=== PATIENT | female | born 1985 | race Caucasian/White ===

== ENCOUNTER 2018-04-29 15:57 | Emergency (ER) | payer MEDICAID, SELFPAY ==
[2018-04-29 15:58] VITALS: BP 122/74; PULSE 86; RESP 16; TEMP 36.8; O2SAT 100; BMI 19.5
[2018-04-29] MEDS: 0.9% Normal Saline 1,000 ML 1000 ML IV (16:41)
[2018-04-29] MEDS: Ondansetron 4 MG/2 ML Vial IV (16:41)
[2018-04-29] MEDS: Ketorolac 30 MG/ML Syringe IV (16:41)
[2018-04-29 16:57] LABS: Bacteria 0 SEEN /hpf (None Seen); Mucous, Urine 0 SEEN /hpf (<or=2+)
[2018-04-29 17:00] LABS: Absolute Lymphocyte Count 1.79 X10^3/ul (0.83-4.51); Absolute Neutrophil Count 7.8 X10^3/uL (2.0-7.7); Basophil# 0.02 X10^3/uL; Basophil% 0.2 % (0-1); Eosinophil# 0.12 X10^3/uL; Eosinophils% 1.2 % (0-5); Hematocrit 41.2 % (37-47); Hemoglobin 13.8 g/dl (12.0-15.0); Lymphocyte # 1.79 X10^3/ul (4.0); Lymphocyte % 17.5 % (19-41); Mean Corp Hgb Conc 33.5 g/gl (32-36); Mean Corpuscular Hgb 32.6 pg (27.0-32.0); Mean Corpuscular Volume 97.4 fL (81-99); Mean Platelet Vol. 9.5 fl (6.2-12.0); Monocyte# 0.42 X10^3/uL; Monocyte% 4.1 % (0-10); Neutrophil # 7.83 X10^3/uL (2.7-7.7); Neutrophil % 76.8 % (47-70); POSITIVE COUNT NO; POSITIVE DIFFERENTIAL NO; POSITIVE MORPHOLOGY NO; Platelet Count 239 K/mm3 (150-450); RBC Distribution Width CV 12.4 % (11.6-14.6); Red Blood Count 4.23 M/mm3 (4.2-5.4); White Blood Count 10.2 K/mm3 (4.4-11.0)
[2018-04-29 17:00] LABS: Color, Urine Yellow (Yellow); Glucose, Dipstick Normal (Normal); Ketone-Dipstick Negative (Negative); Leukocyte Esterase-Dipstick 500 /ul (Negative); Nitrite-Dipstick Negative (Negative); Occult Blood-Urine 250 /ul (Negative); Protein-Dipstick 30 mg/dl (Negative); Specific Gravity, Urine 1.005 (1.002-1.030); Urine Bilirubin Dipstick Negative (Negative); Urine Clarity Sl. Cloudy (Clear); Urine Urobilinogen Normal (Normal)
[2018-04-29 17:06] LABS: Red Blood Cells-Urine 0-5 SEEN /hpf (0-5); Squamous Epithelial Cells - UA 0-5 SEEN /hpf (5-10); White Blood Cells 50-100 SEEN /hpf (0-5)
[2018-04-29 17:10] LABS: Anion Gap 6 (5-15); BUN 10 mg/dL (7-18); BUN/Creat Ratio 15.5 RATIO (10-20); Calcium,Total 8.7 mg/dL (8.5-10.1); Chloride 102 mmol/L (98-107); Creatinine, Serum 0.64 mg/dL (0.55-1.02); EST Glomerular Filtration Rate 112 mL/min (>60); Est Glom Filt Rate - Afr Amer 135 mL/min (>60); Estimated Creatinine Clearance 94.64 ml/min; Glucose 80 mg/dL (74-106); Potassium 3.7 mmol/L (3.5-5.1); Sodium Level 139 mmol/L (136-145)
[2018-04-29 17:17] LABS: Pregnancy, Serum, hCG Quali. NEGATIVE Negative (0-9 Nonpreg)
--- NOTE | 2018-04-29 18:14 | ED.DCSUM_ITS ---
- ER Visit Summary Date of Service: 04/29/18 Chief Complaint: Vaginal bleeding History of Present Illness: The patient is a [address] Little. She is a . She reports she has vaginal bleeding began 3-4 days ago. 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 She also reports that she has had some yellow vaginal discharge that is not foul-smelling. States her last menstrual period was April 04. Patient complains of pelvic pain that is a sharp pain that began 3 days ago. Is 10 out of 10 at worst a 10 currently. Is worsened by nothing and relieved by nothing. She denies any fever. Physical Examination: Vitals: Stable. Afebrile. General: Well-nourished and well-developed. Head: Normocephalic atraumatic. Neck: Supple, no lymphadenopathy. No JVD. Nontender. Cardiovascular: Regular rate and rhythm. No murmurs. Respiratory: No respiratory distress. Clear to auscultation bilaterally. Abdominal: Soft, mild diffuse tenderness palpation and moderate suprapubic tenderness, nondistended, normal bowel sounds. No guarding, rebound, or peritoneal signs. Pelvic: Refused. Back: Nontender. Extremities: Nontender, no edema. Skin: Normal color, no rash. Neurologic: Alert and oriented ?3. Cranial nerves II through XII are intact. Normal strength and sensation. Psych: Normal affect. Test Results: UA shows 50-100 white blood cells. CBC is marked for 7 neutrophils 77. Chem-7 is normal. test is negative. She did test positive for gonorrhea and chlamydia. Emergency Department Course and Treatment: While in the emergency department the patient was treated with Cipro p.o. She was given Toradol and Zofran IV. She is resting comfortably. When her gonorrhea and chlamydia returned I contacted her and told her this. She is instructed to return to emerge department for a shot of Rocephin. Treatment Plan: Patient be discharged on 10 days of doxycycline. Instructed to follow-up Dr. Medellin in 3-5 days for another exam. She is instructed to abstain from sexual contact and to let her partners know that she tested positive for gonorrhea and chlamydia. Disposition: To home in improved and stable condition. Impression: 1. UTI. 2. Cervicitis with gonorrhea/chlamydia. This note was generated with Dragon dictation software. It may contain incorrect words, spelling, and punctuation that were not noted in review of the chart prior to signing ED Disposition - Plan for ED Patient: Disposition: Home or Assisted Living Chief Complaint: Vag Bld, Preg Instructions: ED Chlamydia Female, ED Gonorrhea Female, ED UTI Cystitis Female Prescriptions: Phenazopyridine HCl [Pyridium] 200 mg PO BID PRN PRN #10 tablet PRN Reason: Pain Ciprofloxacin [Cipro] 500 mg PO BID #14 tablet Doxycycline Monohydrate 100 mg PO BID #20 cap Referrals: Girish Little MD [STAFF PHYSICIAN] - 3-5 Days if not improving
[2018-04-29] MEDS: Phenazopyridine 95 MG Tablet 190 MG PO (18:25)
[2018-04-29] MEDS: Ciprofloxacin 500 MG Tablet PO (18:25)
[2018-04-29 18:35] LABS: Neisserai gonorrhoeae by PCR Positive (Negative); Probe Check PASS
[2018-04-29 18:40] LABS: Chlamydia Trachomatis by PCR POSITIVE (Negative)
== END 2018-04-29 18:30 | disposition home or self-care (01) ==
PROVIDERS: Emergency Provider Emergency Medicine
DX: N39.0 Urinary tract infection, site not specified (principal); A56.09 Other chlamydial infection of lower genitourinary tract; A54.03 Gonococcal cervicitis, unspecified; G40.909 Epilepsy, unspecified, not intractable, without status epilepticus; F43.10 Post-traumatic stress disorder, unspecified; Z87.820 Personal history of traumatic brain injury; Z79.899 Other long term (current) drug therapy; F17.200 Nicotine dependence, unspecified, uncomplicated
CPT/HCPCS: 80048; 81001; 84703; 85025; 87491; 87591; 96361; 96374; 96375; 99283; J7030; A4216; J2405

== ENCOUNTER 2018-05-01 20:32 | Emergency (ER) | payer MEDICAID, SELFPAY ==
[2018-05-01 20:34] VITALS: BP 111/82; PULSE 92; RESP 15; TEMP 36.1; BMI 19.2
[2018-05-01 20:36] VITALS: BP 111/82; PULSE 92; RESP 15; TEMP 36.7; BMI 23.8
--- NOTE | 2018-05-01 20:54 | ED.RN ---
PATIENT ARRIVES AND REPORTS SHE IS HERE FOR A SHOT. SAYS SHE WAS SEEN EARLIER IN THE WEEK AND DIAGNOSED WITH AN STD. WAS TOLD TO COME BACK TO ED.
[2018-05-01] MEDS: Ceftriaxone 500 MG Vial 250 MG IM (21:20)
[2018-05-01 21:35] VITALS: BP 124/72; PULSE 70; RESP 15
== END 2018-05-01 21:37 | disposition home or self-care (01) ==
LOC: ED 20:59
PROVIDERS: Emergency Provider Emergency Medicine
DX: A64 Unspecified sexually transmitted disease (principal)
CPT/HCPCS: 96372; 99281

== ENCOUNTER 2019-04-15 09:22 | Emergency (ER) | payer MEDICAID, SELFPAY ==
[2018-12-09 14:59] VITALS: BMI 20.1
[2019-04-15 09:22] VITALS: BP 115/80; PULSE 105; RESP 18; TEMP 36.6; O2SAT 98; BMI 20.1
--- NOTE | 2019-04-15 10:00 | ED.DCSUM_ITS ---
- ER Visit Summary Date of Service: 04/15/19 Chief Complaint: Cough congestion History of Present Illness: The patient is a 34 F past medical history of seizures, depression and PTSD. Patient is young daughter has URI type symptoms. She developed a cough for the last 2 days. Denies nausea, vomiting, diarrhea or fever. No abdominal pain. No dysuria. No shortness of breath or trouble breathing. No earache or sore throat. Physical Examination: Well-appearing young female. No acute distress. Vital signs are stable afebrile. Pulse ox 90% on room air no signs of hypoxia. HEENT exam normal. TMs normal. Posterior pharynx moist and pink. No erythema or exudate. No trouble swallowing or breathing. No drooling or stridor. Neck nontender. No lymphadenopathy. Trachea midline and nontender. Lungs clear to auscultation bilaterally. No rales, rhonchi or wheezing. Equal symmetrical. Heart regular rhythm no murmur. Abdomen soft nontender normal bowel sounds no peritoneal signs. Extremities moves all 4. No edema. Neurologically awake alert with no focal motor deficits. Test Results: None Emergency Department Course and Treatment: Clinically by history and exam the patient is a viral syndrome. Needs no testing. She requested IV fluids which I explained to her she was not dehydrated and easily drink fluids. Treatment Plan: Fluids and rest. Tylenol as needed. Disposition: Discharge Impression: Viral URI This note was generated with [employer] dictation software. It may contain incorrect words, spelling, and punctuation that were not noted in review of the chart prior to signing ED Disposition - Plan for ED Patient: Referrals: Wayne Saul MD [Primary Care Provider] -
--- NOTE | 2019-04-15 10:00 | ED.DEP ---
ED Disposition - Plan for ED Patient: Disposition: Home or Assisted Living Instructions: ED URI Viral Prescriptions: Nicotine [Nicotine Patch] 1 ea TD X1 #20 patch.td24 Referrals: Wayne Saul MD [Primary Care Provider] - 1 Week if not improving Additional Instructions: Plenty of fluids and rest. Tylenol for discomfort.
[2019-04-15 10:38] VITALS: BP 96/71; PULSE 90; RESP 16; O2SAT 97
== END 2019-04-15 10:40 | disposition home or self-care (01) ==
PROVIDERS: Emergency Provider Emergency Medicine; Family Provider Internal Medicine; PCP Internal Medicine
DX: J06.9 Acute upper respiratory infection, unspecified (principal); R56.9 Unspecified convulsions; F32.9 Major depressive disorder, single episode, unspecified; F43.10 Post-traumatic stress disorder, unspecified; Z79.899 Other long term (current) drug therapy; Z72.0 Tobacco use
CPT/HCPCS: 99283

== ENCOUNTER 2019-04-21 23:19 | Emergency (ER) | payer MEDICAID, SELFPAY ==
[2019-04-21 23:20] VITALS: BP 126/84; PULSE 86; RESP 15; TEMP 36.3; O2SAT 97; BMI 20.1
--- NOTE | 2019-04-21 23:37 | ED.VISSUMM ---
- ER Visit Summary Date of Service: 04/21/19 Chief Complaint: Left eye matting and drainage History of Present Illness: The patient is a 34 F who presents with left eye matting and drainage which really began over the last several hours. She has had a recent URI-like illness with congestion runny nose cough. Over the last 4 hours she is developed increased drainage and matting of the left eye. No pain. Physical Examination: Afebrile vitals unremarkable Patient does have some left periorbital edema thick matting and thick purulent drainage from the eye she has diffuse conjunctival injection anterior chambers deep and quiet extraocular motion is intact without pain or palsy Test Results: Not indicated Emergency Department Course and Treatment: Patient's presentation is consistent with bacterial conjunctivitis. She was given ophthalmic antibiotic ointment and discharged with it, instructed on its use. She understands to return for new or worsening symptoms and was discharged. Treatment Plan: [] Disposition: Discharge Impression: Conjunctivitis, left This note was generated with [employer] dictation software. It may contain incorrect words, spelling, and punctuation that were not noted in review of the chart prior to signing ED Disposition - Plan for ED Patient: Referrals: Wayne Saul MD [Primary Care Provider] -
--- NOTE | 2019-04-21 23:40 | ED.DEP ---
ED Disposition - Plan for ED Patient: Instructions: ED Conjunctivitis Bacterial Referrals: Wayne Saul MD [Primary Care Provider] -
== END 2019-04-21 23:54 | disposition home or self-care (01) ==
PROVIDERS: Emergency Provider Emergency Medicine; Family Provider Internal Medicine; PCP Internal Medicine
DX: H10.9 Unspecified conjunctivitis (principal); Z72.0 Tobacco use
CPT/HCPCS: 99282

== ENCOUNTER 2019-07-12 12:58 | Emergency (ER) | payer MEDICAID, SELFPAY ==
[2019-07-12 12:59] VITALS: BP 110/73; PULSE 100; RESP 17; TEMP 37.9; O2SAT 98; BMI 19.8
--- NOTE | 2019-07-12 13:52 | ED.DCSUM_ITS ---
- ER Visit Summary Date of Service: 07/12/19 Chief Complaint: Cough congestion History of Present Illness: The patient is a 34 F states for the past 2 days she has had cough and congestion. She states her daughter was recently diagnosed with a URI started on prednisone and albuterol. Patient has a history of seizures and is a smoker. She denies any fevers. She has nasal congestion. Notes a cough with sputum. Physical Examination: Afebrile oral temperature 98.8 taken by myself vital signs are stable Gen: Well-nourished well-developed Head: Normocephalic atraumatic Eyes: Perrl EOMI ENT: TMs clear turbinate edema and rhinorrhea moist mucous membranes Neck: Supple no lymphadenopathy no JVD nontender CVS: Regular rate rhythm no murmurs normal S1-S2 Respiratory: No distress expiratory wheeze bilaterally chest nontender Abdomen: Soft nontender nondistended normal bowel sounds no masses Back: Nontender Extremity: Nontender no edema Skin: Normal color no rash Neuro: alert orientated ?3 CN II-XII intact normal strength sensation reflexes gait cerebellar Psych: Normal affect normal mood Emergency Department Course and Treatment: I will write for the patient have albuterol MDI. Recommend supportive care. She is asked for a work note which will be granted. Return if worsening or concerns Impression: 1. Viral respiratory illness This note was generated with [employer] dictation software. It may contain incorrect words, spelling, and punctuation that were not noted in review of the chart prior to signing ED Disposition - Plan for ED Patient: Disposition: Home or Assisted Living Instructions: URI, Viral w/ Wheezing (Adult) Prescriptions: Albuterol Inhaler [Ventolin Hfa] 2 puff INHALATION Q4H PRN PRN #1 inhaler PRN Reason: Wheezing Prescription Printed Referrals: Wayne Saul MD [Primary Care Provider] - 1 Week if not improving
[2019-07-12 14:37] VITALS: TEMP 36.9
--- NOTE | 2019-07-12 14:39 | EKG12_ITS ---
Test Reason : CP Blood Pressure : / mmHG Vent. Rate : 090 BPM Atrial Rate : 090 BPM P-R Int : 134 ms QRS Dur : 074 ms QT Int : 386 ms P-R-T Axes : 081 090 068 degrees QTc Int : 472 ms Normal sinus rhythm Possible Left atrial enlargement Rightward axis Borderline ECG Confirmed by ZENAIDA MILLER, ANNEL ([id number]), news videotape editor MADDY BURNETT ([id number]) on 07/14/2019 8:54:30 AM Referred By: TASHA/KAVITA Confirmed By:ANNEL ESTEVEZ MD
== END 2019-07-12 14:47 | disposition home or self-care (01) ==
PROVIDERS: Emergency Provider Emergency Medicine; Family Provider Internal Medicine; PCP Internal Medicine
DX: J06.9 Acute upper respiratory infection, unspecified (principal); G40.909 Epilepsy, unspecified, not intractable, without status epilepticus; F43.10 Post-traumatic stress disorder, unspecified; F41.9 Anxiety disorder, unspecified; F17.200 Nicotine dependence, unspecified, uncomplicated; Z79.899 Other long term (current) drug therapy
CPT/HCPCS: 93005; 99283

== ENCOUNTER → 2020-11-06 09:25 | Outpatient (CLI) | payer MEDICAID, SELFPAY ==
[2020-11-03 14:39] VITALS: BMI 20.8
--- NOTE | 2020-11-06 09:27 | US_ITS ---
STUDY: ULTRASOUND BREAST - RIGHT REASON FOR EXAM: Female, 35 years old. Palpable lump in the right breast. TECHNIQUE: Axial and longitudinal images of the RIGHT breast were performed with a high resolution ultrasound transducer. # OF IMAGES: 24 COMPARISON: Comparison is made with prior mammogram done earlier in the day. FINDINGS: RIGHT Breast: The mammographic abnormality corresponds to a focal skin thickening. No sonographic abnormality is seen. US/Breast Limited Unilateral IMPRESSION: No sonographic abnormality is seen. ASSESSMENT CATEGORY: BIRADS Category 1: Negative. A letter regarding these results will be sent to the patient by the facility within 30 days. Electronically Signed: David Schultz, at 11:11 EST , Service support ,
--- NOTE | 2020-11-06 09:27 | BI_ITS ---
MAMMOGRAPHY - BILATERAL DIAGNOSTIC REASON FOR EXAM: Female, 35 years old. Skin lesion overlying the central portion of the right breast. PERTINENT HISTORY: Non-contributory. TECHNIQUE: Digital bilateral breast paulette (3D mammographic acquisition) in the CC and MLO projections. 2-D mediolateral oblique (MLO) and craniocaudad (CC) views of both breasts were obtained. CAD: Full Field Digital Mammography with Computer Added Detection was performed. COMPARISON: None. Baseline examination. FINDINGS: Breast Composition: The breasts are extremely dense, which lowers the sensitivity of mammography. There are no dominant masses or suspicious calcifications. No other significant abnormalities are identified. BI/DIAG MAMM W/CAD, BILAT IMPRESSION: Negative diagnostic mammogram. With the patient''s history of a skin lesion overlying the mid lateral portion of the right breast, correlation with ultrasound is recommended. ASSESSMENT CATEGORY: BIRADS Category 0: Incomplete. Need additional imaging evaluation. A letter regarding these results will be sent to the patient by the facility within 30 days. Approximately 10% of breast cancers are not detected by mammography. A normal mammogram should not delay biopsy of a clinically suspicious abnormality. Electronically Signed: David Schultz, at 11:06 EST , Service support ,
== END ==
PROVIDERS: PCP Internal Medicine; Referring Provider Nurse Practitioner Family; Visit Provider Nurse Practitioner Family
DX: R92.2 Inconclusive mammogram (principal)
CPT/HCPCS: 76642; 77062; 77066; G0279

== ENCOUNTER → 2020-11-22 13:14 | Outpatient (CLI) | payer MEDICAID, SELFPAY ==
[2020-11-03 14:39] VITALS: BMI 20.8
--- NOTE | 2020-11-22 13:14 | MRI_ITS ---
STUDY: BILATERAL BREAST MR WITHOUT AND WITH CONTRAST REASON FOR EXAM: Female, 35 years old. Right breast mass. Maternal family history of breast cancer. TECHNIQUE: Multi-sequence multi-echo imaging of both breasts was performed with a dedicated breast coil. T1-weighted and T2-weighted images were performed before the administration of contrast. T1-weighted images were also performed after the administration of 11 ml Dotarem without complications. COMPARISON: Mammograms dated 11/06/2020 and limited right breast ultrasound dated 11/06/2020. FINDINGS: RIGHT BREAST: The breast tissue is markedly dense with marked background enhancement which can lower the sensitivity of breast MRI for detection of small masses or small areas of non-mass enhancement. There are no abnormal enhancing masses or areas of non-mass enhancement in the right breast. LEFT BREAST: The breast tissue is markedly dense with marked background enhancement which can lower the sensitivity of breast MRI for detection of small masses or small areas of non-mass enhancement. There are no abnormal enhancing masses or areas of non-mass enhancement in the left breast. There are no enlarged or abnormal lymph nodes. There is no abnormality in the visualized regions of the chest or liver. MRI/Breast Bilateral W/O and W IMPRESSION: Markedly dense parenchymal tissue with marked enhancement. No focal mass identified. Any further evaluation of a palpable mass should be made clinically. Yearly follow-up mammogram in 1 year recommended. CATEGORY: BIRADS Category 2: Benign. A letter regarding these results will be sent to the patient by the facility within 30 days. Electronically Signed: Garrett Bowden MD at 12:31 EST , Service support ,
== END ==
PROVIDERS: PCP Internal Medicine; Referring Provider Nurse Practitioner Family; Visit Provider Nurse Practitioner Family
DX: N64.4 Mastodynia (principal); N63.10 Unspecified lump in the right breast, unspecified quadrant
CPT/HCPCS: 77049; A9575; A4216; C8908

== ENCOUNTER 2021-08-14 17:42 | Emergency (ER) | payer MEDICARE, MEDICAID, SELFPAY ==
[2021-08-14 17:42] VITALS: BP 125/80; PULSE 102; RESP 16; TEMP 37.4; O2SAT 100; BMI 20.3
--- NOTE | 2021-08-14 19:15 | EDS_ITS ---
HPI History of Present Illness Chief Complaint: Cough Detail of Chief Complaint: Cough and cold symptoms Informant: patient Narrative Narrative: Patient presents to the emergency department stating that she developed a cough and symptoms of a cold that mostly started today. She complains of headache and body aches and wanting to sleep. She states that she is lost her sense of smell. Her son also has a cough. She has not been immunized against Covid. She denies any Covid exposures. Patient also states she has not had a menstrual period in 2 weeks however she had a tubal ligation. She did not take a home test. Patient's not had any vomiting or diarrhea. Prior similar symptoms: No PFSH PFSH Medical History (Updated 08/14/21 @ 20:[address] Jac Valdez, ) Anxiety Back problem Epilepsy PTSD (post-traumatic stress disorder) Home Medications levetiracetam 1,000 mg PO DAILY 01/27/17 [History Last Taken 03/07/17] divalproex 500 mg tablet,delayed release 500 mg PO BID 09/11/18 [History Last Taken Unknown] sertraline 100 mg tablet 100 mg PO DAILY 12/09/18 [History Last Taken Unknown] nicotine 1 ea TD X1 #20 patch.td24 04/15/19 [Rx Last Taken Unknown] albuterol sulfate 2 puff INHALATION Q4H PRN PRN #1 inhaler 07/12/19 [Rx Last Taken Unknown] alprazolam 0.25 mg tablet 0.25 mg PO ONCE PRN #1 tab 11/17/20 [Rx Last Taken Unknown] ondansetron 4 mg PO Q8H PRN PRN #10 tab 08/14/21 [Rx Last Taken Unknown] Allergy/AdvReac Type Severity Reaction Status Date / Time zonisamide [From [facility]] Allergy Hives Verified 08/14/21 17:46 naproxen AdvReac Upset Verified 08/14/21 17:46 Stomach Family History Father Myocardial infarction Mother Thyroid cancer Melanoma Hypertension Surgical History History of tubal ligation Social History (Updated 11/03/20 @ 16:31 by Scottie Mills NP, [employer] COUNSELOR-[employer]) Smoking Status: Current every day smoker tobacco type: cigarettes alcohol intake: current alcohol intake frequency: 0-2 drinks per day substance use type: marijuana what type of physical activity do you participate in: walking ROS ROS ED Constitutional Constitutional ED: Reports systems reviewed and no addt'l complaints, except as documented and chills; Denies body ache(s) or change in weight Eyes Eyes: Denies acute decrease in peripheral vision, change in vision, double vision or loss of vision ENT ENT ED: Reports none; Denies ear pain, lip swelling, loss taste/smell, neck pain, otalgia or sore throat Cardiovascular Cardiovascular: Reports none; Denies abdominal pain, chest pain with activity, leg edema, lightheadedness, palpitations, rapid heart rate or syncope Respiratory/Chest Respiratory/Chest: Reports none and cough; Denies change in mental status, dry cough, dyspnea, hemoptysis, shortness of breath at rest or shortness of breath with exertion Gastrointestinal Gastrointestinal: Reports none; Denies abdominal pain, change in stool character, diarrhea, hematemesis, hematochezia, melena, rectal bleeding or vomiting Genitourinary Genitourinary ED: Reports none; Denies abdominal discomfort, anuria, dysuria, genital pain or polyuria Musculoskeletal Musculoskeletal: Reports none and myalgias; Denies arthralgias, back pain, difficulty walking, extremity pain or muscle weakness Integumentary Reports none; Denies abscess or rash Neurologic Neurologic: Reports none and headache(s); Denies abnormal gait, confusion, focal weakness, frequent falls, loss of vision, numbness, paresthesias, radicular pain, vertigo or weakness Psychiatric Psychiatric: Reports systems reviewed and no addt'l complaints, except as documented and none; Denies behavioral changes, confusion, difficulty concentrating, hallucinations, suicidal ideation, tactile hallucinations or visual hallucinations Endocrine Endocrinology: Denies none, cold intolerance, excessive sweating, fatigue or heat intolerance Hematologic/Lymphatic Hematologic/Lymphatic: Reports none; Denies anemia, easy bleeding or easy bruising Allergic/Immunologic Allergic/Immunologic ED: Denies as per HPI, none, lip swelling, mouth swelling, throat swelling, tongue swelling or hives EXAM Physical Exam Const Vital Signs: 08/14/21 17:42 08/14/21 19:28 Temperature 99.4 F H Temperature Source Temporal Pulse Rate 102 H Respiratory Rate 16 Respiratory Effort Normal Non-Labored Respiratory Depth Normal Respiratory Pattern Normal Blood Pressure 125/80 H Blood Pressure Mean 95 Pulse Ox 100 Oxygen Delivery Method Room Air Positive well nourished and well developed General Appearance ED: well developed and NAD HEENT Reports TM's clear and moist mucous membranes normocephalic and atraumatic; Negative for trauma or tenderness Tympanic Membrane ED: Yes TM's clear Eyes PERRL and EOMs intact bilaterally General Eye ED: Negative for pale conjunctiva or scleral icterus Neck no lymphadenopathy, supple and no JVD General: Negative for tenderness Chest Wall inspection of chest normal and palpation of chest normal Chest: Negative for tenderness Resp normal respiratory effort and clear to auscultation bilaterally Effort and Inspection: Negative for respiratory distress or pain with movement Auscultation: Negative for rhonchi, wheezes or diminished lung sounds Cardio regular rate, regular rhythm, S1 normal heart sound, S2 normal heart sound and no murmurs Peripheral Pulses: pulses 2+ throughout GI normal to inspection, nondistended, normoactive bowel sounds, soft to palpation, non-tender, non-distended and no masses Back/Spine no CVA tenderness and no thoracic nor lumbar tenderness Extremity normal to inspection General Extremety ED: Negative for edema General Extremity: Negative for edema Neuro oriented x3, CN's II-XII intact bilaterally, no sensory deficits noted and gait normal Sensorium / Orientation: awake, alert, oriented to person, oriented to place and oriented to time Motor Exam: strength 5/5 throughout and strength abnormal Psych mental status grossly normal Skin no rashes or lesions noted and no wounds MDM MDM MDM Narrative Medical decision making narrative: Patient's work-up unremarkable in the emergency department. I suspect likely has a viral syndrome. Patient was given Toradol and Zofran. I will write her a prescription for Zofran. Patient advised to push fluids. Patient to follow-up with primary care physician in 3 to 5 days. Patient to return if condition should worsen anyway. Lab Data Attestation: I reviewed the patient's lab results. Labs: Laboratory Results - last 24 hr 08/14/21 08/14/21 08/14/21 19:35 19:35 19:35 WBC 5.9 RBC 4.01 L Hgb 14.1 Hct 40.4 MCV 100.7 H MCH 35.2 H MCHC 34.9 RDW Std Deviation 44.1 H RDW Coeff of Aliyah 11.8 Plt Count 211 MPV 9.3 Immature Gran % (Auto) 0.800 Neut % (Auto) 71.5 H Lymph % (Auto) 13.4 L [place] % (Auto) 12.2 H Eos % (Auto) 1.4 Baso % (Auto) 0.7 Absolute Neuts (auto) 4.2 Absolute Lymphs (auto) 0.79 L Nucleated RBC % 0 Sodium 136 Potassium 3.9 Chloride 99 Carbon Dioxide 31.0 Anion Gap 6 BUN 15 Creatinine 0.81 Estim Creat Clear Calc 78.31 Est GFR (MDRD) Af Amer 102 Est GFR (MDRD) Non-Af 84 BUN/Creatinine Ratio 18.5 Glucose 86 Calcium 8.8 Serum , Qual NEGATIVE Radiography Chest X-Ray - ED: 1 View Diagnostic Testin view chest x-ray obtained interpreted by myself as no acute disease process. Radiology official report pending. Discharge Plan Triage Chief Complaint: Cough ED Provider: Jac Valdez Dx/Rx/DC Orders Clinical Impression: Acute viral syndrome Instructions: ED Viral Syndrome (Adult) Prescriptions: New ondansetron [ondansetron] 4 MG tablet 4 mg PO Q8H PRN PRN (Reason: Nausea) Qty: 10 RF: 0 No Action divalproex [Depakote] 500 mg tablet,delayed release (DR/EC) 500 mg PO BID RF: 0 sertraline [Zoloft] 100 mg tablet 100 mg PO DAILY RF: 0 levetiracetam 750 MG tablet 1,000 mg PO DAILY RF: 0 nicotine 1 EACH patch 24 hour 1 ea TD X1 Qty: 20 RF: 0 albuterol sulfate 1 INHALER inhaler 2 puff inhalation Q4H PRN PRN (Reason: Wheezing) Qty: 1 RF: 0 alprazolam [Xanax] 0.25 mg tablet 0.25 mg PO ONCE PRN (Reason: anxiety) Qty: 1 RF: 0 Primary Care Provider: Wayne Saul Referrals: Wayne Saul MD [Primary Care Provider] - 3-5 Days Disposition Disposition: Home, Self Care
[2021-08-14] MEDS: 0.9% Normal Saline 1,000 ML 150 ML IV (19:48)
--- NOTE | 2021-08-14 19:50 | RAD_ITS ---
STUDY: X-RAY CHEST REASON FOR EXAM: Female, 36 years old. Cough TECHNIQUE: Frontal view COMPARISON: 09/03/2017 FINDINGS: The lungs are clear and expanded. There is no demonstrated pleural abnormality. Normal size heart. Normal mediastinum and chelsi. Normal visualized pulmonary arteries. Normal visualized aortic arch and descending thoracic aorta. Normal visualized thoracic spine. Normal visualized ribs, clavicles, and shoulders. There is no demonstrated abnormality of the visualized soft tissue structures of the upper abdomen. RAD/Chest 1 View (Portable) IMPRESSION: Normal x-ray examination of the chest. Electronically Signed: Jerson Tripp DO at 21:00 EDT Tel [phone], Service support ,
[2021-08-14 19:51] LABS: Absolute Lymphocyte Count 0.79 X10^3/uL (0.83-4.51); Absolute Neutrophil Count 4.2 X10^3/uL (2.0-7.7); Basophil# 0.04 X10^3/uL; Basophil% 0.7 % (0-1); Eosinophil# 0.08 X10^3/uL; Eosinophils% 1.4 % (0-5); Hematocrit 40.4 % (37-47); Hemoglobin 14.1 g/dL (12.0-15.0); Lymphocyte # 0.79 X10^3/ul (0.83-4.51); Lymphocyte % 13.4 % (19-41); Mean Corp Hgb Conc 34.9 g/dL (32-36); Mean Corpuscular Hgb 35.2 pg (27.0-32.0); Mean Corpuscular Volume 100.7 fL (81-99); Mean Platelet Vol. 9.3 fl (6.2-12.0); Monocyte# 0.72 X10^3/uL; Monocyte% 12.2 % (0-10); NRBC Flagged by Analyzer 0 % (0-5); Neutrophil # 4.21 X10^3/uL (2.7-7.7); Neutrophil % 71.5 % (47-70); Platelet Count 211 K/mm3 (150-450); RBC Distribution Width CV 11.8 % (11.6-14.6); RBC Distribution Width SD 44.1 fl (35.1-43.9); Red Blood Count 4.01 M/mm3 (4.2-5.4); White Blood Count 5.9 K/mm3 (4.4-11.0)
[2021-08-14 20:06] LABS: Internal QC Validated? YES +Cl - CLEAR BKGD; Pregnancy, Serum, hCG Quali. NEGATIVE Negative
[2021-08-14 20:07] LABS: Anion Gap 6 (5-15); BUN 15 mg/dL (7-18); BUN/Creat Ratio 18.5 RATIO (10-20); Calcium,Total 8.8 mg/dL (8.5-10.1); Chloride 99 mmol/L (98-107); Creatinine, Serum 0.81 mg/dL (0.55-1.02); EST Glomerular Filtration Rate 84 mL/min (>60); Est Glom Filt Rate - Afr Amer 102 mL/min (>60); Estimated Creatinine Clearance 78.31 ml/min; Glucose 86 mg/dL (74-106); Potassium 3.9 mmol/L (3.5-5.1); Sodium Level 136 mmol/L (136-145)
[2021-08-14] MEDS: Ondansetron 4 MG/2 ML Vial IV (20:54)
[2021-08-14] MEDS: Ketorolac 30 MG/ML Syringe IV (20:56)
[2021-08-14 20:59] VITALS: BP 114/67; PULSE 78; RESP 16; O2SAT 100
== END 2021-08-14 21:01 | disposition home or self-care (01) ==
PROVIDERS: Emergency Provider Emergency Medicine; PCP Internal Medicine
DX: B34.9 Viral infection, unspecified (principal); F41.9 Anxiety disorder, unspecified; F17.210 Nicotine dependence, cigarettes, uncomplicated; Z79.899 Other long term (current) drug therapy
CPT/HCPCS: 71045; 80048; 84703; 85025; 87426; 96361; 96374; 96375; 99283; J2405

== ENCOUNTER 2021-11-10 12:19 | Emergency (ER) | payer MEDICARE, MEDICAID, SELFPAY ==
[2021-11-10 12:20] VITALS: BP 135/97; PULSE 71; RESP 16; TEMP 36; O2SAT 99; BMI 21.2
[2021-11-10 13:43] LABS: Absolute Lymphocyte Count 2.13 X10^3/uL (0.83-4.51); Absolute Neutrophil Count 4.8 X10^3/uL (2.0-7.7); Basophil# 0.03 X10^3/uL; Basophil% 0.4 % (0-1); Eosinophil# 0.22 X10^3/uL; Eosinophils% 2.8 % (0-5); Hematocrit 41.7 % (37-47); Hemoglobin 14.2 g/dL (12.0-15.0); Lymphocyte # 2.13 X10^3/ul (0.83-4.51); Mean Corp Hgb Conc 34.1 g/dL (32-36); Mean Corpuscular Hgb 35.2 pg (27.0-32.0); Mean Corpuscular Volume 103.5 fL (81-99); Mean Platelet Vol. 9.8 fl (6.2-12.0); Monocyte# 0.66 X10^3/uL; Monocyte% 8.4 % (0-10); NRBC Flagged by Analyzer 0 % (0-5); Neutrophil # 4.83 X10^3/uL (2.7-7.7); Neutrophil % 61.1 % (47-70); Platelet Count 275 K/mm3 (150-450); RBC Distribution Width CV 11.9 % (11.6-14.6); RBC Distribution Width SD 46.1 fl (35.1-43.9); Red Blood Count 4.03 M/mm3 (4.2-5.4); White Blood Count 7.9 K/mm3 (4.4-11.0)
[2021-11-10 13:52] LABS: BUN 17 mg/dL (7-18); Creatinine, Serum 0.77 mg/dL (0.55-1.02); Estimated Creatinine Clearance 82.75 ml/min; Glucose 90 mg/dL (74-106)
[2021-11-10 13:53] LABS: Anion Gap 8 (5-15); Calcium,Total 9.5 mg/dL (8.5-10.1); Chloride 102 mmol/L (98-107); EST Glomerular Filtration Rate 89 mL/min (>60); Est Glom Filt Rate - Afr Amer 108 mL/min (>60); Potassium 3.8 mmol/L (3.5-5.1); Sodium Level 140 mmol/L (136-145)
--- NOTE | 2021-11-10 14:09 | EDS_ITS ---
HPI HPI - Female History of Present Illness Chief Complaint: Vag Bleeding Informant: patient Pain Pain: Positive for Pelvic Pain Onset: Yesterday Context: Gradual Onset Timing: Waxes and wanes Quality: Positive for Cramping Location: Suprapubic Current Severity: Moderate Maximum Severity: Moderate Bleeding Issue: Positive for Vaginal bleeding and Passing clots Onset: Yesterday Context: Gradual Onset Timing: Waxes and wanes Current Severity: Heavy Narrative Narrative: Patient presents for evaluation secondary to heavier than normal vaginal bleeding. Last menstrual cycle was 2 months ago. She did have a tubal ligation in 2016. She denies any other vaginal discharge. She is passing clots. [facility] Medical History (Updated 11/10/21 @ 14:[address] Emma Hernandes MD) Anxiety Back problem Epilepsy PTSD (post-traumatic stress disorder) Home Medications levetiracetam 1,000 mg PO DAILY 01/27/17 [History Last Taken 03/07/17] divalproex 500 mg tablet,delayed release 500 mg PO BID 09/11/18 [History Last Taken Unknown] sertraline 100 mg tablet 100 mg PO DAILY 12/09/18 [History Last Taken Unknown] nicotine 1 ea TD X1 #20 patch.td24 04/15/19 [Rx Last Taken Unknown] albuterol sulfate 2 puff INHALATION Q4H PRN PRN #1 inhaler 07/12/19 [Rx Last Taken Unknown] alprazolam 0.25 mg tablet 0.25 mg PO ONCE PRN #1 tab 11/17/20 [Rx Last Taken Unknown] ondansetron 4 mg PO Q8H PRN PRN #10 tab 08/14/21 [Rx Last Taken Unknown] Allergy/AdvReac Type Severity Reaction Status Date / Time zonisamide [From [facility]] Allergy Hives Verified 11/10/21 12:23 naproxen AdvReac Upset Verified 11/10/21 12:23 Stomach Family History Father Myocardial infarction Mother Thyroid cancer Melanoma Hypertension Surgical History History of tubal ligation Social History Smoking Status: Current every day smoker tobacco type: cigarettes alcohol intake: current alcohol intake frequency: 0-2 drinks per day substance use type: marijuana what type of physical activity do you participate in: walking ROS ROS ED Constitutional Constitutional ED: Denies chills or fever(s) Eyes Eyes: Denies change in vision ENT ENT ED: Denies sore throat Cardiovascular Cardiovascular: Denies chest pain Respiratory/Chest Respiratory/Chest: Denies cough or dyspnea Gastrointestinal Gastrointestinal: Reports abdominal pain and nausea; Denies diarrhea or vomiting Genitourinary Genitourinary ED: Denies dysuria Musculoskeletal Musculoskeletal: Denies back pain Integumentary Denies rash Neurologic Neurologic: Denies headache(s) Allergic/Immunologic Allergic/Immunologic ED: Denies urticaria EXAM Physical Exam Const Vital Signs: 11/10/21 12:20 Temperature 96.8 F L Temperature Source Temporal Pulse Rate 71 Respiratory Rate 16 Blood Pressure 135/97 H Blood Pressure Mean 109 Pulse Ox 99 Oxygen Delivery Method Room Air Positive well nourished and well developed General Appearance ED: well developed HEENT Reports moist mucous membranes Eyes PERRL and EOMs intact bilaterally Neck supple Chest Wall inspection of chest normal and palpation of chest normal Resp normal respiratory effort and clear to auscultation bilaterally Cardio regular rate and regular rhythm GI soft to palpation GI Narrative: Mild suprapubic tenderness palpation. No guarding or rebound. Palpation: tender suprapubic Psych mental status grossly normal Skin no rashes or lesions noted MDM MDM MDM Narrative Medical decision making narrative: CBC, chemistry studies, serum test obtained. Patient given a dose of [place]. Lab Data Attestation: I reviewed the patient's lab results. Labs: Laboratory Results - last 24 hr 11/10/21 11/10/21 11/10/21 13:26 13:26 13:26 WBC 7.9 RBC 4.03 L Hgb 14.2 Hct 41.7 MCV 103.5 H MCH 35.2 H MCHC 34.1 RDW Std Deviation 46.1 H RDW Coeff of Aliyah 11.9 Plt Count 275 MPV 9.8 Immature Gran % (Auto) 0.300 Neut % (Auto) 61.1 Lymph % (Auto) 27.0 [place] % (Auto) 8.4 Eos % (Auto) 2.8 Baso % (Auto) 0.4 Absolute Neuts (auto) 4.8 Absolute Lymphs (auto) 2.13 Nucleated RBC % 0 Sodium 140 Potassium 3.8 Chloride 102 Carbon Dioxide 30.0 Anion Gap 8 BUN 17 Creatinine 0.77 Estim Creat Clear Calc 82.75 Est GFR (MDRD) Af Amer 108 Est GFR (MDRD) Non-Af 89 BUN/Creatinine Ratio 22.0 H Glucose 90 Calcium 9.5 Serum , Qual NEGATIVE Treatment and Re-Evaluation Comments:: Patient's lab work unremarkable. test is negative. She has not had a period in 2 months and I believe her heavier than normal bleeding is likely secondary to this. was her primary concern and this test is negative. Patient be referred to Dr. Jenkins who is on-call for no doc [employer]. Discharge Plan Triage Chief Complaint: Vag Bleeding ED Provider: Emma Hernandes Dx/Rx/DC Orders Clinical Impression: Menorrhagia Instructions: ED Heavy Menstrual Bleeding Prescriptions: No Action divalproex [Depakote] 500 mg tablet,delayed release (DR/EC) 500 mg PO BID RF: 0 sertraline [Zoloft] 100 mg tablet 100 mg PO DAILY RF: 0 levetiracetam 750 MG tablet 1,000 mg PO DAILY RF: 0 nicotine 1 EACH patch 24 hour 1 ea TD X1 Qty: 20 RF: 0 albuterol sulfate 1 INHALER inhaler 2 puff inhalation Q4H PRN PRN (Reason: Wheezing) Qty: 1 RF: 0 ondansetron [ondansetron] 4 MG tablet 4 mg PO Q8H PRN PRN (Reason: Nausea) Qty: 10 RF: 0 alprazolam [Xanax] 0.25 mg tablet 0.25 mg PO ONCE PRN (Reason: anxiety) Qty: 1 RF: 0 Primary Care Provider: Wayne Saul Referrals: Wayne Saul MD [Primary Care Provider] - Amalia Jenkins MD [STAFF PHYSICIAN] - As Needed Disposition Disposition: Home, Self Care
[2021-11-10] MEDS: HYDROcodone Bitartrate/Apap 5/325 Tablet PO (14:13)
[2021-11-10 14:19] LABS: Internal QC Validated? YES +Cl - CLEAR BKGD; Pregnancy, Serum, hCG Quali. NEGATIVE Negative
[2021-11-10 15:08] VITALS: BP 128/72; PULSE 69; RESP 16; O2SAT 99
== END 2021-11-10 15:11 | disposition home or self-care (01) ==
PROVIDERS: Emergency Provider Emergency Medicine; PCP Internal Medicine
DX: N92.0 Excessive and frequent menstruation with regular cycle (principal); G40.909 Epilepsy, unspecified, not intractable, without status epilepticus; F43.10 Post-traumatic stress disorder, unspecified; F17.210 Nicotine dependence, cigarettes, uncomplicated; Z79.899 Other long term (current) drug therapy
CPT/HCPCS: 80048; 84703; 85025; 99284; A4216

== ENCOUNTER 2023-12-02 18:49 | Emergency (ER) | payer MEDICARE, MEDICAID, SELFPAY ==
[2023-12-02 18:49] VITALS: BP 162/91; PULSE 78; RESP 16; TEMP 36.2; O2SAT 99; BMI 21.0
--- OUTSIDE RECORDS SUMMARY | 2023-12-02 20:38 | XMS RPT_ITS | CCD ---
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 investigate or prosecute any alcohol or drug abuse patient.[facility] the event this information is protected by the Federal Confidentiality of Alcohol and Drug Abuse Patient Records regulations: The Federal rules restrict any use of the information to criminally investigate or prosecute any alcohol or drug abuse patient.[facility] the event this information is protected by the Federal Confidentiality of Alcohol and Drug Abuse Patient Records regulations: The Federal rules restrict any use of the information to criminally investigate or prosecute any alcohol or drug abuse patient.[facility] the event this information is protected by the Federal Confidentiality of Alcohol and Drug Abuse Patient Records regulations: The Federal rules restrict any use of the information to criminally investigate or prosecute any alcohol or drug abuse patient.[facility] the event this information is protected by the Federal Confidentiality of Alcohol and Drug Abuse Patient Records regulations: The Federal rules restrict any use of the information to criminally investigate or prosecute any alcohol or drug abuse patient.[facility] the event this information is protected by the Federal Confidentiality of Alcohol and Drug Abuse Patient Records regulations: The Federal rules restrict any use of the information to criminally investigate or prosecute any alcohol or drug abuse patient.[facility] the event this information is protected by the Federal Confidentiality of Alcohol and Drug Abuse Patient Records regulations: The Federal rules restrict any use of the information to criminally investigate or prosecute any alcohol or drug abuse patient.[facility] the event this information is protected by the Federal Confidentiality of Alcohol and Drug Abuse Patient Records regulations: The Federal rules restrict any use of the information to criminally investigate or prosecute any alcohol or drug abuse patient.[facility] the event this information is protected by the Federal Confidentiality of Alcohol and Drug Abuse Patient Records regulations: The Federal rules restrict any use of the information to criminally investigate or prosecute any alcohol or drug abuse patient.[facility] the event this information is protected by the Federal Confidentiality of Alcohol and Drug Abuse Patient Records regulations: The Federal rules restrict any use of the information to criminally investigate or prosecute any alcohol or drug abuse patient.[facility] the event this information is protected by the Federal Confidentiality of Alcohol and Drug Abuse Patient Records regulations: The Federal rules restrict any use of the information to criminally investigate or prosecute any alcohol or drug abuse patient.[facility] Center[facility] the event this information is protected by the Federal Confidentiality of Alcohol and Drug Abuse Patient Records regulations: The Federal rules restrict any use of the information to criminally investigate or prosecute any alcohol or drug abuse patient.[facility] Reason for Visit (unrecogniz ed section and content) Specialty Diagnoses / Procedures Referred By Toni staton Referred To Contact [facility] Diagnoses Patellar dislocation, left, sequela Procedures CONSULT TO PHYSICAL THERAPY PHYSICAL THERAPY EVALUATION HIGH COMPLEX 45 MINS Clayton Calderón V, DO [address] [place] [address] [facility] [address] [place] [address] Referral ID Status Reason Start Date Expiration Date Visits Requested Visits Authorized [id number] Authorized Auto-Generat ed Referral 12/01/2022 11/30/2023 20 20 Reason Comments Orders Labs Reason Comments Finger Pain R hand fourth finger infection x3 days Reason Onset Date Comments Refill Request 08/12/2023 Reason Comments Fall X 2 days on Left kne e Reason Comments Medication Problem Reason Onset Date Comments Results 08/19/2023 Reason Comments Left Knee Pain Left knee injuryRefe rred by Marie Anders 08/12/2023 Specialty Diagnoses / Procedures Referred By Toni staton Referred To Contact Orthopedics Diagnoses Knee injuries, left, initial encounter Procedures CONSULT TO ORTHOPAEDICS OFFICE/OUTPATIENT NEW HIGH MDM 60-74 MINUTES Rob Bhagat APRN.[employer] [address] [place] [address] Referral ID Status Reason Start Date Expiration Date Visits Requested Visits Authorized [id number] Pending Review PCP Requested Referral 08/12/2023 08/11/2024 1 1 Reason Comments medication concern cloBAZam (ONFI) 10 m g tab tablet Reason Comments PT Eval FOR RECORDS PERTAINING TO PATIENTS WHO ARE OR HAVE BEEN ENROLLED IN A CHEMICAL DEPENDENCY/SUBSTANCEABUSE PROGRAM, SOME INFORMATION MAY BE OMITTED. This clinical summary was aggregated from multiple sources. Caution should be exercised in using it in the provision of clinical care. This summary normalizes information from multiple sources, and as a consequence, information in this document may materially change the coding, format and clinical context of patient data. In addition, data may be omitted in some cases. CLINICAL DECISIONS SHOULD BE BASED ON THE PRIMARY CLINICAL RECORDS. [facility]. provides no warranty or guarantee of the accuracy or completeness of information in this document.
[2023-12-02] MEDS: Lidocaine/Epi/Tetracaine 50 ML 1 APPLIC TOPICAL (20:41)
[2023-12-02] MEDS: Ondansetron ODT 4 MG Tablet PO (20:41)
--- NOTE | 2023-12-02 20:42 | EX.ED.UPPERE ---
HPI History of Present Illness Chief Complaint: Laceration Informant: patient Narrative Narrative: Present for evaluation laceration left index finger occurring yesterday at 6 PM over 24 hours ago. She had new potato pillar when she excellently sliced her finger. Tetanus within last 5 years. Trouble controlling bleeding with bandage throughout the day. No anticoagulation medicines. Pain to the tip of the finger. Tetanus Immunization: <5 years [facility] Medical History (Updated 12/02/23 @ 21:[address] Ovi Aleman DO) Anxiety Back problem Epilepsy PTSD (post-traumatic stress disorder) Home Medications levetiracetam 750 mg tablet 1,000 mg PO DAILY 01/27/17 [History Last Taken 03/07/17] divalproex 500 mg tablet,delayed release (Depakote) 500 mg PO BID 09/11/18 [History Last Taken Unknown] sertraline 100 mg tablet (Zoloft) 100 mg PO DAILY 12/09/18 [History Last Taken Unknown] nicotine 7 mg/24 hr daily transdermal patch 1 ea transdermal X1 ##20 04/15/19 [Rx Last Taken Unknown] albuterol sulfate 90 mcg/actuation aerosol inhaler 2 puff inhalation Q4H PRN PRN Wheezing ##1 07/12/19 [Rx Last Taken Unknown] alprazolam 0.25 mg tablet (Xanax) 0.25 mg PO ONCE PRN anxiety #1 TAB 11/17/20 [Rx Last Taken Unknown] ondansetron 4 mg disintegrating tablet 4 mg PO Q8H PRN PRN Nausea #10 tabs 08/14/21 [Rx Last Taken Unknown] ondansetron 4 mg disintegrating tablet 4 mg PO Q8H PRN PRN Nausea #10 tabs 12/02/23 [Rx Last Taken Unknown] Allergy/AdvReac Type Severity Reaction Status Date / Time zonisamide [From [facility]] Allergy Hives Verified 12/02/23 18:52 naproxen AdvReac Upset Verified 12/02/23 18:52 Stomach Family History Father Myocardial infarction Mother Thyroid cancer Melanoma Hypertension Surgical History History of tubal ligation Social History Smoking Status: Current every day smoker tobacco type: cigarettes alcohol intake: current alcohol intake frequency: 0-2 drinks per day substance use type: marijuana what type of physical activity do you participate in: walking ROS ROS ED Constitutional Constitutional ED: Denies chills, fever(s) or sweats Eyes Eyes: Denies change in vision ENT ENT ED: Denies dysphagia or sore throat Cardiovascular Cardiovascular: Denies chest pain, leg edema, palpitations or racing heartbeat Respiratory/Chest Respiratory/Chest: Denies cough, dyspnea or dyspnea on exertion Gastrointestinal Gastrointestinal: Reports nausea; Denies abdominal pain, diarrhea or vomiting Genitourinary Genitourinary ED: Denies dysuria, hematuria or urinary frequency Musculoskeletal Musculoskeletal: Reports extremity pain; Denies back pain or neck pain Integumentary Denies rash or wounds Neurologic Neurologic: Denies headache(s), paresthesias or weakness EXAM Physical Exam Const Vital Signs: 12/02/23 18:49 Temperature 97.2 F L Temperature Source Temporal Pulse Rate 78 Respiratory Rate 16 Blood Pressure 162/91 H Blood Pressure Mean 114 Pulse Ox 99 Oxygen Delivery Method Room Air Positive well nourished and well developed Constitutional Narrative: Anxious nontoxic General Appearance ED: well developed and NAD HEENT Reports moist mucous membranes normocephalic and atraumatic Eyes PERRL, EOMs intact bilaterally and conjunctivae normal General Eye ED: Yes normal appearance of both eyes Neck no lymphadenopathy and supple General: Negative for tenderness Chest Wall Chest: Negative for tenderness Resp normal respiratory effort and normal air movement Effort and Inspection: symmetric chest movement; Negative for respiratory distress Cardio regular rate, regular rhythm and no murmurs Peripheral Pulses: pulses 2+ throughout GI normal to inspection, nondistended, normoactive bowel sounds and non-tender Palpation: Negative for guarding or rebound tenderness present Back/Spine no CVA tenderness and no thoracic nor lumbar tenderness Extremity Extremity Narrative: Left hand index finger: Dressing removed from the finger noted avulsion piece at the tip of the finger radial aspect. No nailbed involvement. No bony exposure. No active bleeding. Subcu exposure. General Extremety ED: Negative for edema or tenderness General Extremity: Negative for edema Neuro oriented x3 and no sensory deficits noted Sensorium / Orientation: awake and alert Skin no rashes or lesions noted and no wounds MDM MDM MDM Narrative Medical decision making narrative: Interventions / MDM: Differential diagnosis: Skin avulsion Diagnosis considered but do not suspect: No clinical fracture My EKG interpretation: N/A Imaging independently reviewed and interpreted by myself: N/A External documents reviewed: N/A Test considered but not ordered:N/A ED course: Patient took off dressing came nauseated, Zofran Motrin ordered. Will place let topically to help with some control. Gelfoam and dressing per nursing. Discussed healing by secondary intention's. Outpatient follow-up. Re-evaluation: stable Disposition discussed with patient/family/significant other: Patient Case discussed with consulting clinician: N/A This note was generated with [employer] dictation software. It may contain incorrect words, spelling, and punctuation that were not noted in checking the note before signing. Discharge Plan Triage Chief Complaint: Laceration ED Provider: Ovi Aleman Dx/Rx/DC Orders Clinical Impression: Avulsion of skin of finger, Epilepsy Instructions: ED Skin Tear (Skin Avulsion) Prescriptions: New ondansetron [ondansetron] 4 mg tablet,disintegrating 4 mg PO Q8H PRN PRN (Reason: Nausea) Qty: 10 0RF No Action divalproex [Depakote] 500 mg tablet,delayed release (DR/EC) 500 mg PO BID sertraline [Zoloft] 100 mg tablet 100 mg PO DAILY levetiracetam 750 MG tablet 1,000 mg PO DAILY nicotine 1 EACH patch 24 hour 1 ea TD X1 Qty: 20 0RF albuterol sulfate 1 INHALER inhaler 2 puff inhalation Q4H PRN PRN (Reason: Wheezing) Qty: 1 0RF Rx Instructions: dispense with spacer ondansetron [ondansetron] 4 MG tablet 4 mg PO Q8H PRN PRN (Reason: Nausea) Qty: 10 0RF alprazolam [Xanax] 0.25 mg tablet 0.25 mg PO ONCE PRN (Reason: anxiety) Qty: 1 0RF Rx Instructions: take 30 min prior to MRI, do not drive on this Primary Care Provider: Wayne Saul Referrals: Wayne Saul MD [Primary Care Provider] - 1 Week Activity Restrictions/Additional Instructions: Skin avulsion will need to heal by secondary intention's. Daily wound care. Follow-up with your doctor. Disposition Disposition: Home, Self Care Discharge Date/Time: 12/02/23 21:36
[2023-12-02] MEDS: Ibuprofen 600 MG Tablet PO (20:43)
[2023-12-02 21:28] VITALS: PULSE 73; RESP 17; O2SAT 98
== END 2023-12-02 21:36 | disposition home or self-care (01) ==
PROVIDERS: Emergency Provider Emergency Medicine; PCP Internal Medicine; Visit Provider Emergency Medicine
DX: S61.211A Laceration without foreign body of left index finger without damage to nail, initial encounter (principal); G40.909 Epilepsy, unspecified, not intractable, without status epilepticus; F17.210 Nicotine dependence, cigarettes, uncomplicated; W26.8XXA Contact with other sharp object(s), not elsewhere classified, initial encounter
CPT/HCPCS: 99283

== ENCOUNTER 2024-09-20 17:43 | Emergency (ER) | payer MEDICARE, MEDICAID, SELFPAY ==
[2024-09-20 17:43] VITALS: BP 116/78; PULSE 108; RESP 18; TEMP 36.9; O2SAT 100; BMI 20.7
--- NOTE | 2024-09-20 22:23 | ED.RN ---
pt's name was called and she did not respond.People in the waiting room said she left.
--- OUTSIDE RECORDS SUMMARY | 2024-09-20 22:33 | XMS RPT_ITS | CCD ---
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 Name Role Phone Unavailable Primary Care Provider UnavailNICOLE Nowak Referring Unavailable NICOLE LAGUNAS Attending Unavailable CLAYTON CALDERÓN Referring Unavailable MIKE MOORE Attending Unavailable MIKE MOORE Attending Unavailable CLAYTON CALDERÓN Referring Unavailable ANN FORD Referring Unavailable ROB BHAGAT Referring Unavailable NICOLE LAGUNAS Referring Unavailable CLAYTON CALDERÓN Attending Unavailable Unavailable Primary Care Provider Unavailabl e Allergies Allergy Classification Reported Allergen(s) Allergy Type Date of Onset Reaction(s) Facility Anti-Epileptic Agents (1 source) zonisamide; Translations: [ZONISAMIDE] Drug Allergy 7 [facility] Repository Pollen (1 source) Grass pollen; Translations: [GRASS POLLEN] Substance Allergy 8 [facility] (15 sources) Grass pollen; Translations: [GRASS POLLEN] Propensity to adverse reactions 8 [facility] (15 sources) zonisamide; Translations: [ZONISAMIDE] Drug Allergy 7 Rash, Shortness of Breath [facility] Medications Current Medications Medication Drug Class(es) Dates [...] days. 30 tablet 5 08/19/2023 02/15/2024 Active Comment on above: Take 1 tablet by agapito th daily at bedtime for 180 days. 24 hr levETIRAcetam 500 mg extended release oral tablet (17 sources) Start: 04-23-2024 End: 04-23-2025 take 3 tablets by mouth once daily in the morning levETIRAcetam XR (KEPPRA XR) 500 mg 24 hr tablet Take 3 tablets by mouth every morning. 270 tablet 3 04/23/2024 04/23/2025 Active Start: 08-29-2023 End: 04-23-2024 take 2 tablets by mouth twice daily levETIRAcetam (KEPPRA) 750 mg tablet Take 2 tablets by mouth two times a day. 360 tablet 1 08/29/2023 04/23/2024 Discontinued (Course of therapy completed) Start: 02-05-2022 End: 08-11-2024 take 1 tablet by mouth twice daily levETIRAcetam (KEPPRA) 1,000 mg tablet Take 1 tablet by mouth twice daily. 180 tablet 3 08/12/2023 08/29/2023 Discontinued Comment on above: Take 1 tablet by agapito twice daily. Take 2 tablets by mo [facility] two times a day. meloxicam 15 mg oral tablet (9 sources) Nonsteroidal Anti-inflammatory Drug Start: 3 End: take 1 tablet by mouth once daily at mealtime meloxicam (MOBIC) 15 mg tablet Indications: Knee injuries, left, initial encounter Take 1 tablet by mouth once daily. Take with food. 30 tablet 1 08/22/2023 Active Comment on above: Take 1 tablet by agapito once daily. Take with food. mupirocin 0.02 mg/mg topical ointment (1 source) RNA Synthetase Inhibitor Antibacterial Start: 3 End: 3 mupirocin (BACTROBAN) 2 % ointment Indications: Fingernail injury, right, initial encounter Apply to affected area twice daily for 10 days. 15 g 0 07/07/2023 07/17/2023 Active Comment on above: Apply to affected ar ea twice daily for 10 days. Completed/Discontinued Medications Medication Drug Class(es) Dates Sig (Normalized) Sig (Original) [id number] 200 actuat albuterol 0.09 mg/actuat metered dose inhaler (12 sources) beta2-Adrenergic Agonist Start: 07-12-2019 End: 04-23-2024 albuterol HFA (PROVENTIL HFA, VENTOLIN HFA) 90 mcg/actuation inhaler EVERY 4 HOURS NEEDED 07/12/2019 04/23/2024 Discontinued (Other) Comment on above: EVERY 4 HOURS NEE DED cyclobenzaprine hydrochloride 10 mg oral tablet (8 sources) Muscle Relaxant Start: 08-12-2023 End: 04-23-2024 take 1 tablet by mouth three times daily as needed for muscle spasms cyclobenzaprine (FLEXERIL) 10 mg tablet Indications: Knee injuries, left, initial encounter Take 1 tablet by mouth three times daily as needed for muscle spasm. 10 tablet 0 08/12/2023 04/23/2024 Discontinued (Other) Comment on above: Take 1 tablet by agapito th three times daily as needed for muscle spasm. folic acid 1 mg oral tablet (12 sources) Start: 03-07-2017 End: 04-23-2024 folic acid 1 mg tablet Take 2 mg by mouth. 03/07/2017 04/23/2024 Discontinued (Other) Comment on above: Take 2 mg by mouth. ketorolac tromethamine 10 mg oral tablet (14 sources) Nonsteroidal Anti-inflammatory Drug, Cyclooxygenase Inhibitor Start: 05-12-2018 End: 04-23-2024 take 1 tablet by mouth every twelve hours as needed ketorolac (TORADOL) 10 mg tablet Take 1 tablet by mouth every 12 hours as needed for Pain. 10 tablet 05/12/2018 04/23/2024 Discontinued (Other) Comment on above: Take 1 tablet by agapito th every 12 hours as needed for Pain. LORazepam 0.5 mg oral tablet (14 sources) Benzodiazepine Start: 09-04-2017 End: 04-23-2024 LORazepam (ATIVAN) 0.5 mg tab Indications: Generalized epilepsy (HCC) Take 1 tablet as needed at onset of seizure to abort seizures or for seizure clusters. 15 tablet 09/04/2017 04/23/2024 Discontinued (Other) Comment on above: Take 1 tablet as nee ded at onset of seizure to abort seizures or for seizure clusters. 24 hr nicotine 0.292 mg/hr transdermal system (12 sources) Cholinergic Nicotinic Agonist Start: 04-15-2019 End: 05-24-2024 nicotine (NICODERM) 7 mg/24 hr Apply as directed. 04/15/2019 04/23/2024 Discontinued (Other) Start: 04-15-2019 End: 04-23-2024 nicotine (NICODERM) 7 mg/24 hr Apply as directed. 0 04/15/2019 04/23/2024 Discontinued (Other) Comment on above: Apply as directed. sertraline 50 mg oral tablet (14 sources) Serotonin Reuptake Inhibitor Start: 08-19-2017 End: 04-23-2024 sertraline (ZOLOFT) 50 mg tablet 100mg in the am and 50mg in the pm. 08/19/2017 04/23/2024 Discontinued (Other) Comment on above: 100mg in the am and 50mg in the pm. 24 hr divalproex sodium 500 mg extended release oral tablet (15 sources) Mood Stabilizer, Anti-epileptic Agent Start: 08-01-2022 End: 08-11-2024 take 1 tablet by mouth once daily divalproex ER (DEPAKOTE ER) 500 mg 24 hr tablet Take 1 tablet by mouth once daily. 90 tablet 3 08/12/2023 04/23/2024 Discontinued (Other) Start: 06-04-2022 End: 12-01-2022 take 1 tablet by mouth twice daily divalproex DR (DEPAKOTE) 500 mg EC tablet Take 1 tablet by mouth twice daily. 180 tablet 0 06/04/2022 12/01/2022 Active Comment on above: Take 1 tablet by agapito th twice daily. Take 1 tablet by agapito th once daily. Problems Active Problems Problem Classification Problem Date Documented Da te Episodic/Chronic Anxiety disorders (20 sources) Generalized anxiety disorder; Translations: [Generalized anxiety disorder] Onset: 12-24-2016 Chronic Epilepsy; convulsions (20 sources) Idiopathic generalized epilepsy; Translations: [Generalized idiopathic epilepsy and epileptic syndromes, not intractable, without status epilepticus] Onset: 04-23-2017 Chronic Other injuries and conditions due to external causes (1 source) Fingernail injury; Translations: [Unspecified injury of right wrist, hand and finger(s), initial encounter] 07-07-2023 Episodic Other injuries and conditions due to external causes (2 sources) Injury of left knee; Translations: [Unspecified injury of left lower leg, initial encounter] 08-12-2023 Episodic Past or Other Problems Problem Classification Problem Date Documented Date Episodic/Chronic Joint disorders and dislocations; trauma-related (7 sources) Dislocation of patellofemoral joint; Translations: [Unspecified dislocation of left patella, sequela] Onset: 09-04-2023 08-22-2023 Episodic Other injuries and conditions due to external causes (1 source) Unspecified injury of left lower leg, initial encounter; Translations: [Knee injuries, left, initial encounter] Onset: 08-22-2023 Episodic Results Test Name Value Interpretation Reference Range Facility CBC panel Auto (Bld)on 04-27 Erythrocyte distribution width (RBC) [Ratio] 12.1 % Normal 11.5-15.0 [facility] Comment on above: Order Comment: John madden Type: BLOOD SPECIMENOrdering Facility: [facility] Address: [address] [place] [address] Performed By: #### 5 8410-2 ####[facility] LABCLIA [id number] [place] [address] [place] Hematocrit (Bld) [Volume fraction] 40.2 % Normal 36.0-46.0 [facility] Comment on above: Order Comment: John madden Type: BLOOD SPECIMENOrdering Facility: [facility] Address: [address] [place] [address] Performed By: #### 5 8410-2 ####[facility] LABCLIA [id number] [place] [address] [place] Hemoglobin (Bld) [Mass/Vol] 13.4 g/dL Normal 11.5-15.5 [facility] Comment on above: Order Comment: John madden Type: BLOOD SPECIMENOrdering Facility: [facility] Address: [address] [place] [address] Performed By: #### 5 8410-2 ####[facility] LABCLIA [id number] [place] [address] [place] MCH (RBC) [Entitic mass] 33.6 pg Normal 26.0-34.0 [facility] Comment on above: Order Comment: Speci men Type: BLOOD SPECIMENOrdering Facility: [facility] Address: [address] [place] [address] Performed By: #### 5 8410-2 ####[facility] LABCLIA [id number] [place] [address] [place] MCHC (RBC) [Mass/Vol] 33.3 g/dL Normal 30.5-36.0 [facility] Comment on above: Order Comment: Speci men Type: BLOOD SPECIMENOrdering Facility: [facility] Address: [address] [place] [address] Performed By: #### 5 8410-2 ####[facility] LABIA [id number] [place] [address] [place] MCV (RBC) [Entitic vol] 100.8 fL High 80.0-100.0 [facility] Comment on above: Order Comment: Speci men Type: BLOOD SPECIMENOrdering Facility: [facility] Address: [address] [place] [address] Performed By: #### 5 8410-2 ####[facility] LABIA [id number] [place] [address] [place] Nucleated RBC (Bld) [#/Vol] 10*3/uL Normal <0.01 [facility] Comment on above: Order Comment: Speci men Type: BLOOD SPECIMENOrdering Facility: [facility] Address: [address] [place] [address] Performed By: #### 5 8410-2 ####[facility] LABIA [id number] [place] [address] [place] Platelet mean volume (Bld) [Entitic vol] 10.1 fL Normal 9.0-12.7 [facility] Comment on above: Order Comment: Speci men Type: BLOOD SPECIMENOrdering Facility: [facility] Address: [address] [place] [address] Performed By: #### 5 8410-2 ####[facility] LABCLIA [id number] [place] [address] [place] Platelets (Bld) [#/Vol] 312 10*3/uL Normal 150-400 [facility] Comment on above: Order Comment: Speci men Type: BLOOD SPECIMENOrdering Facility: [facility] Address: [address] [place] [address] Performed By: #### 5 8410-2 ####[facility] LABIA [id number] [place] [address] [place] RBC (Bld) [#/Vol] 3.99 10*6/uL Normal 3.90-5.[address] [facility] Comment on above: Order Comment: Speci men Type: BLOOD SPECIMENOrdering Facility: [facility] Address: [address] [place] [address] Performed By: #### 5 8410-2 ####[facility] LABIA [id number] [place] [address] [place] WBC (Bld) [#/Vol] 8.45 10*3/uL Normal 3.70-11.[address] [facility] Comment on above: Order Comment: Speci men Type: BLOOD SPECIMENOrdering Facility: [facility] Address: [address] [place] [address] Performed By: #### 5 8410-2 ####[facility] LABIA [id number] [place] [id number] [place] Comprehensive metabolic 2000 panelon 04-27-2024 Albumin [Mass/Vol] 4.7 g/dL Normal 3.9-4.9 [facility] Comment on above: Order Comment: Speci men Type: BLOOD SPECIMENOrdering Facility: [facility] Address: [address] [place] [address] Performed By: #### 2 4323-8 ####[facility] LABIA [id number] [place] [address] [place] ALP [Catalytic activity/Vol] 71 U/L Normal 34-123 [facility] Comment on above: Order Comment: Speci men Type: BLOOD SPECIMENOrdering Facility: [facility] Address: [address] [place] [address] Performed By: #### 2 4323-8 ####[facility] LABCLIA [id number] [place] [address] [place] ALT [Catalytic activity/Vol] 23 U/L Normal 7-38 [facility] Comment on above: Order Comment: Speci men Type: BLOOD SPECIMENOrdering Facility: [facility] Address: [address] [place] [address] Performed By: #### 2 4323-8 ####[facility] LABCLIA [id number] [place] [address] [place] Anion gap [Moles/Vol] 12 mmol/L Normal 9-18 [facility] Comment on above: Order Comment: Speci men Type: BLOOD SPECIMENOrdering Facility: [facility] Address: [address] [place] [address] Performed By: #### 2 4323-8 ####[facility] LABCLIA [id number] [place] [address] [place] AST [Catalytic activity/Vol] 30 U/L Normal 13-35 [facility] Comment on above: Order Comment: Speci men Type: BLOOD SPECIMENOrdering Facility: [facility] Address: [address] [place] [address] Performed By: #### 2 4323-8 ####[facility] LABCLIA [id number] [place] [address] [place] Bilirubin [Mass/Vol] 0.4 mg/dL Normal 0.2-1.3 [facility] Comment on above: Order Comment: Speci men Type: BLOOD SPECIMENOrdering Facility: [facility] Address: [address] [place] [address] Performed By: #### 2 4323-8 ####[facility] LABCLIA [id number] [address] [address] [place] Calcium [Mass/Vol] 10.0 mg/dL Normal 8.5-10.2 [facility] Comment on above: Order Comment: Speci men Type: BLOOD SPECIMENOrdering Facility: [facility] Address: [address] [place], [place] [address] Performed By: #### 2 4323-8 ####[facility] LABCLIA [id number] [place] [address] [place] Chloride [Moles/Vol] 98 mmol/L Normal 97-105 [facility] Comment on above: Order Comment: Speci men Type: BLOOD SPECIMENOrdering Facility: [facility] Address: [address] [place] [address] Performed By: #### 2 4323-8 ####[facility] LABCLIA [id number] [place] [address] [place] CO2 [Moles/Vol] 26 mmol/L Normal 22-30 [facility] Comment on above: Order Comment: Speci men Type: BLOOD SPECIMENOrdering Facility: [facility] Address: [address] [place], [place] [address] Performed By: #### 2 4323-8 ####[facility] LABCLIA [id number] [place] [id number] [place] Creatinine [Mass/Vol] 0.68 mg/dL Normal 0.58-0.96 [facility] Comment on above: Order Comment: Speci men Type: BLOOD SPECIMENOrdering Facility: [facility] Address: [address] [place], [place] [address] Performed By: #### 2 4323-8 ####[facility] LABCLIA [id number] [place] [id number] [place] Creatinine and Glomerular filtration rate.predicted panel (S/P/Bld) 113 mL/min/1.73m??? Normal >=60 [facility] Comment on above: Order Comment: John madden Type: BLOOD SPECIMENOrdering Facility: [facility] Address: [address] [place] [address] Result Comment: Reshma mated Glomerular Filtration Rate (eGFR) is calculated using the 2020 CKD-EPI creatinine equation. This equation utilizes serum creatinine, sex, and age as parameters. The creatinine assay has traceable calibration to isotope dilution-mass spectrometry. Refer to KDIGO guidelines for clinical interpretation. In patients with unstable renal function, e.g. those with acute kidney injury, the eGFR may not accurately reflect actual GFR. Performed By: #### 2 4323-8 ####[facility] LABCLIA [id number] [place] [address] [place] Glucose [Mass/Vol] 147 mg/dL High 74-99 [facility] Comment on above: Order Comment: John madden Type: BLOOD SPECIMENOrdering Facility: [facility] Address: [address] [place] [address] Result Comment: The [place] Diabetes Association (ADA) provides guidance for cutoff values for fasting glucose and random glucose. The ADA defines fasting as no caloric intake for at least 8 hours. Fasting plasma glucose results between 100 to 125 mg/dL indicate increased risk for diabetes (prediabetes). Fasting plasma glucose results greater than or equal to 126 mg/dL meet the criteria for diagnosis of diabetes. In the absence of unequivocal hyperglycemia, results should be confirmed by repeat testing. In a patient with classic symptoms of hyperglycemia or hyperglycemic crisis, random plasma glucose results greater than or equal to 200 mg/dL meet the criteria for diagnosis of diabetes. Reference: Standards of Medical Care in Diabetes 2016, [place] Diabetes Association. Diabetes Care. 2016.39(Suppl 1). Performed By: #### 2 4323-8 ####[facility] LABCLIA [id number] [place] [address] [place] Potassium [Moles/Vol] 4.1 mmol/L Normal 3.7-5.1 [facility] Comment on above: Order Comment: Speci men Type: BLOOD SPECIMENOrdering Facility: [facility] Address: [address] [place] [id number] Performed By: #### 2 4323-8 ####[facility] LABCLIA [id number] [address] [address] [place] Protein [Mass/Vol] 7.7 g/dL Normal 6.3-8.0 [facility] Comment on above: Order Comment: Speci men Type: BLOOD SPECIMENOrdering Facility: [facility] Address: [address] [place] [address] Performed By: #### 2 4323-8 ####[facility] LABCLIA [id number] [place] [address] [place] Sodium [Moles/Vol] 136 mmol/L Normal 136-144 [facility] Comment on above: Order Comment: Speci men Type: BLOOD SPECIMENOrdering Facility: [facility] Address: [address] [place] [address] Performed By: #### 2 4323-8 ####[facility] LABCLIA [id number] [place] [address] [place] Urea nitrogen [Mass/Vol] 10 mg/dL Normal 7-21 [facility] Comment on above: Order Comment: Speci men Type: BLOOD SPECIMENOrdering Facility: [facility] Address: [address] [place] [address] Performed By: #### 2 4323-8 ####[facility] LABCLIA [id number] [place] [id number] [place] levETIRAcetam SerPl-ncon 0 04-27-2024 levETIRAcetam [Mass/Vol] 6.8 ug/mL Low 12.0-46.0 [facility] Comment on above: Order Comment: Speci men Type: BLOOD SPECIMENOrdering Facility: [facility] Address: [address] [place] [address] Result Comment: This test is not suitable for patients receiving treatment with the drug brivaracetam (Briviact). The drug causes an interference that may lead to falsely elevated levetiracetam results. Reference ranges and high/low indicator flags are provided as general guidelines only. The treating physician must determine appropriate target levels/dosing based on the specific clinical situation. This test was developed and its performance characteristics determined by [facility] [place] ([place]). It has not been cleared or approved by the FDA. -[facility] is regulated under CLIA as qualified to perform high-complexity testing. This test is used for clinical purposes. It should not be regarded as investigational or for research. Performed By: #### 3 0471-7 ####[facility] LABCLIA [id number] [facility] [id number] [place], [place] [id number] [facility] CNOVon 04-23-2024 CNOV Office Visit (NEEPBA ) JORY BHATT ([id number]) 1985 F Date Time Provider Department 04/23/24 10:00 AM NICOLE LAGUNAS During your visit today, we recorded the following information about you: Pulse Respiration Blood pressure Weight 69/minute 16/minute 111/76 52.2 kg Height Last Period 1.588 m 04/06/24 Nicole Lagunas MD 04/23/2024 11:11 AM Signed This is a regular in-office established patient visit. Chief Complaint: ?follow up? Interval History: Patient accompanied by: none History given by: patient, records Last Visit Date: 08/01/22 39 year old year old female presents for [...] says jerks in sleep resolved Memory: fair Interim History: 08/01/22 - last visit Jan 2023 - two seizures within days of each other, attributes it to her leaving her and the stress 08/19/23 - elevated LFTs, stopped VPA, replaced with Onfi 10 mg Qhs and increased Keppra 1500 mg BID 08/29/23 - did not tolerate Onfi, stopped it and only increased Keppra to 1500 mg BID She denied any seizures between 08/2022 and 01/2023. She also denied any seizures between 01/2023 and now. Her last seizures were in Jan 2023. Seizures prior to Jan 2023 were >4 years prior. She reports compliance with medication but has changed the way she takes it. She is only taking LEV IR 1500 mg once daily in the morning and not BID as she is supposed to. She denied side effects but she is unable to remember to take the evening dose. - Reviewed ROS and PFSH without any change [...] on paternal side. Prior AEDs: LTG, ZNS - Meds: Current Outpatient Medications on File Prior to Visit Medication Sig meloxicam (MOBIC) 15 mg tablet Take 1 tablet by mouth once daily. Take with food. Levetiracetam 750 mg tablet Takes 2 tablets by mouth once daily every morning. No current facility-administered medications on file prior to visit. - Results reviewed: WBC Date Value Ref Range Status 08/12/2023 6.06 3.70 - 11.00 k/uL Final RBC Date Value Ref Range Status 08/12/2023 4.22 3.90 - 5.20 m/uL Final Hemoglobin Date Value Ref Range Status 08/12/2023 14.9 11.5 - 15.5 g/dL Final Hematocrit Date Value Ref Range Status 08/12/2023 43.4 36.0 - 46.0 % Final Platelet Count Date Value Ref Range Status 08/12/2023 298 150 - 400 k/uL Final MCV Date Value Ref Range Status 08/12/2023 102.8 (H) 80.0 - 100.0 fL Final Sodium Date Value Ref Range Status 08/12/2023 138 136 - 144 mmol/L Final Potassium Date Value Ref Range Status 08/12/2023 4.3 3.7 - 5.1 mmol/L Final Magnesium Date Value Ref Range Status 04/23/2017 2.2 1.7 - 2.6 mg/dL Final BUN Date Value Ref Range Status 08/12/2023 10 7 - 21 mg/dL Final Creatinine Date Value Ref Range Status 08/12/2023 0.70 0.58 - 0.96 mg/dL Final Calcium, Total Date Value Ref Range Status 08/12/2023 9.7 8.5 - 10.2 mg/dL Final CO2 Date Value Ref Range Status 08/12/2023 26 22 - 30 mmol/L Final Glucose Date Value Ref Range Status 08/12/2023 90 74 - 99 mg/dL Final Comment: The [place] Diabetes Asso (more content not included)... Normal [facility] CNTHERAPYon 09-09-2023 CNTHERAPY OT/PT/Speech Visit (PTWS) JORY BHATT ([id number]) 1985 F Date Time Provider Department 09/09/23 12:45 PM MIKE MOORE PTWS Date Time Provider Department Center 09/09/2023 12:45 PM [id number], [facility] PTWS [facility] Reason for Visit: PT Discharge [752] Primary Visit Diagnosis:Patellar dislocation, left, sequela [S83.005S] Allergies As of Date: 09/09/2023 Noted Allergy Reaction GRASS POLLEN 06/15/2008 ZONEGRAN (ZONISAMIDE) 05/21/2017 2 - Rash 12 - Shortness of Breath Date Reviewed: 08/22/2023 Reviewed by: Samantha Ayala, RN - Fully Assessed Prescriptions as of 12/08/2023 - levETIRAcetam (KEPPRA) 750 mg tablet Take 2 tablets by mouth two times a day. - meloxicam (MOBIC) 15 mg tablet Take 1 tablet by mouth once daily. Take with food. - cloBAZam (ONFI) 10 mg tab tablet Take 1 tablet by mouth daily at bedtime for 180 days. - divalproex ER (DEPAKOTE ER) 500 mg 24 hr tablet Take 1 tablet by mouth once daily. - cyclobenzaprine (FLEXERIL) 10 mg tablet Take 1 tablet by mouth three times daily as needed for muscle spasm. - albuterol HFA (PROVENTIL HFA, VENTOLIN HFA) 90 mcg/actuation inhaler EVERY 4 HOURS NEEDED - nicotine (NICODERM) 7 mg/24 hr Apply as directed. - folic acid 1 mg tablet Take 2 mg by mouth. - ketorolac (TORADOL) 10 mg tablet Take 1 tablet by mouth every 12 hours as needed for Pain. - sertraline (ZOLOFT) 50 mg tablet 100mg in the am and 50mg in the pm. - LORazepam (ATIVAN) 0.5 mg tab Take 1 tablet as needed at onset of seizure to abort seizures or for seizure clusters. Normal [facility] CNTHERAPYon 09-04-2023 CNTHERAPY OT/PT/Speech Visit (PTWS) MARLYNJORY Tricia ([id number]) 1985 F Date Time Provider Department 09/04/23 2:00 PM MIKE MOORE PTWS Date Time Provider Department [place] 09/04/2023 2:00 PM [id number], CORE[place] PTWS [place] Reason for Visit: PT Eval [747] Visit Diagnosis:Patellar dislocation, left, sequela [S83.005S] Allergies As of Date: 09/04/2023 Noted Allergy Reaction GRASS POLLEN 06/15/2008 ZONEGRAN (ZONISAMIDE) 05/21/2017 2 - Rash 12 - Shortness of Breath Date Reviewed: 08/22/2023 Reviewed by: Samantha Ayala, RN - Fully Assessed Prescriptions as of 09/04/2023 - levETIRAcetam (KEPPRA) 750 mg tablet Take 2 tablets by mouth two times a day. - meloxicam (MOBIC) 15 mg tablet Take 1 tablet by mouth once daily. Take with food. - cloBAZam (ONFI) 10 mg tab tablet Take 1 tablet by mouth daily at bedtime for 180 days. - divalproex ER (DEPAKOTE ER) 500 mg 24 hr tablet Take 1 tablet by mouth once daily. - cyclobenzaprine (FLEXERIL) 10 mg tablet Take 1 tablet by mouth three times daily as needed for muscle spasm. - albuterol HFA (PROVENTIL HFA, VENTOLIN HFA) 90 mcg/actuation inhaler EVERY 4 HOURS NEEDED - nicotine (NICODERM) 7 mg/24 hr Apply as directed. - folic acid 1 mg tablet Take 2 mg by mouth. - ketorolac (TORADOL) 10 mg tablet Take 1 tablet by mouth every 12 hours as needed for Pain. - sertraline (ZOLOFT) 50 mg tablet 100mg in the am and 50mg in the pm. - LORazepam (ATIVAN) 0.5 mg tab Take 1 tablet as needed at onset of seizure to abort seizures or for seizure clusters. [facility] (NE50MN[facility] JORY BHATT ([id number]) 1985 F Date Time Provider Department 08/29/23 NICOLE LAGUNAS NE50MN During your visit today, we recorded the following information about you: Dona Olivarez 08/29/2023 10:10 AM Signed Medication Concern Person Calling Jory Bhatt Name of medication cloBAZam (ONFI) 10 mg tab tablet Concern with medication making her fill like a basket case. Does not feel good at all Patient of Lorraine Garcia 08/29/2023 10:58 AM Signed Patient states she is returning call to nurse. Please call back [phone]. Reyna Denney RN 08/29/2023 11:40 AM Signed Spoke with patient, she is not feeling good on Onfi and wants to come off and just remain on Keppra. She did not follow instructions given and went right off Depakote and has been taking Onfi 10mg hs. Please advise SHIRIN Muniz Lynn, RN 08/29/2023 3:52 PM Signed Patient calling again for recommendations SHIRIN Muniz Kelly, JOHN.TELEVISION NEWS PHOTOGRAPHER 08/29/2023 4:20 PM Signed Would advise her to increase Keppra to 1000/1500 for 1 week and then 1500/1500. She can stop Onfi tonight. The following approved medication requests have been transmitted electronically. Requested Prescriptions Signed Prescriptions Disp Refills levETIRAcetam (KEPPRA) 750 mg tablet 360 tablet 1 Sig: Take 2 tablets by mouth two times a day. Authorizing Provider: ANN FORD APRN.Reyna Ardon RN 08/29/2023 4:43 PM Signed Spoke with patient, provided recommendations below. She verbalized agreement and thanked me for call. Requested info be sent in a [employer] message Reyna Denney RN Allergies As of Date: 08/29/2023 Noted Allergy Reaction GRASS POLLEN 06/15/2008 ZONEGRAN (ZONISAMIDE) 05/21/2017 2 - Rash 12 - Shortness of Breath Date Reviewed: 08/22/2023 Reviewed by: Samantha Aayla RN - Fully Assessed Reason for Visit: medication concern [Other] Cmt: cloBAZam (ONFI) 10 mg tab tablet Order(s):levETIRAceta m (KEPPRA) 750 mg tabletTake 2 tablets by mouth two times a day.Disp: 360 tabletRfl: 1 Prescriptions as of 08/29/2023 - levETIRAcetam (KEPPRA) 750 mg tablet Take 2 tablets by mouth two times a day. - meloxicam (MOBIC) 15 mg tablet Take 1 tablet by mouth once daily. Take with food. - cloBAZam (ONFI) 10 mg tab tablet Take 1 tablet by mouth daily at bedtime for 180 days. - divalproex ER (DEPAKOTE ER) 500 mg 24 hr tablet Take 1 tablet by mouth once daily. - cyclobenzaprine (FLEXERIL) 10 mg tablet Take 1 tablet by mouth three times daily as needed for muscle spasm. - albuterol HFA (PROVENTIL HFA, VENTOLIN HFA) 90 mcg/actuation inhaler EVERY 4 HOURS NEEDED - nicotine (NICODERM) 7 mg/24 hr Apply as directed. - folic acid 1 mg tablet Take 2 mg by mouth. - ketorolac (TORADOL) 10 mg tablet Take 1 tablet by mouth every 12 hours as needed for Pain. - sertraline (ZOLOFT) 50 mg tablet 100mg in the am and 50mg in the pm. - LORazepam (ATIVAN) 0.5 mg tab Take 1 tablet as needed at onset of seizure to abort seizures or for seizure clusters. Problem List As Of Date 08/29/2023 Noted Resolved Generalized anxiety disorder [F41.1] 12/24/2016 Nonintractable generalized idiopathic epilepsy *04/23/2017 PTSD (post-traumatic stress disorder) [F43.10] 04/25/2017 Prescriptions ordered this encounter Disp Refills Start End LEVETIRACETAM 750 MG TABLET 360 * 1 08/29/2023 02/25/2024 Route: ORAL Sig: Take 2 tablets by mouth two times a day. Medications Discontinued During This Encounter Prescriptions - levETIRAcetam (KEPPRA) 1,000 mg tablet (Discontinued) Take 1 tablet by mouth twice daily. Encounter Status:Closed by ANN FORD on 08/29/23 [facility] CNOVon 08-22-2023 CNOV Office Visit (FRFHWS ) JORY BHATT ([id number]) 1985 F Date Time Provider Department 08/22/23 1:30 PM [facility] During your visit today, we recorded the following information about you: Samantha Ayala RN 08/22/2023 1:54 PM Signed Patient presents with: Left Knee Pain: Left [...] Intervention/Comfort measure: Medication, Reposition, Relaxation, Cold, Splinting SHIRIN Euceda Dennis, V, DO 08/22/2023 1:54 PM Signed Jory Bhatt presents with pain, swelling, and [...] PT eval and tx Clayton Calderón DO Referring Provider: ROB BHAGAT [[id number]] Allergies As of Date: 08/22/2023 Noted Allergy Reaction GRASS POLLEN 06/15/2008 ZONEGRAN (ZONISAMIDE) 05/21/2017 2 - Rash 12 - Shortness of Breath Date Reviewed: 08/22/2023 Reviewed by: Samantha Ayala RN - Fully Assessed Reason for Visit: Left Knee Pain [1208] Cmt: Left knee injury Referred by Marie Bhagat Xray 08/12/2023 Primary Visit Diagnosis:Patellar dislocation, left, sequela [S83.005S] Other Visit Diagnosis:Knee injuries, left, initial encounter [S89.92XA] Order(s):CONSULT TO ORTHOPAEDICS [9026] Order #: [id number]: 1 CONSULT TO PHYSICAL THERAPY [9032] Order #: [id number]: 1 FUTURE meloxicam (MOBIC) 15 mg tabletTake 1 tablet by mouth once daily. Take with food.Disp: 30 tabletRfl: 1 Prescriptions as of 08/22/2023 - meloxicam (MOBIC) 15 mg tablet Take 1 tablet by mouth once daily. Take with food. - cloBAZam (ONFI) 10 mg tab tablet Take 1 tablet by mouth daily at bedtime for 180 days. - divalproex ER (DEPAKOTE ER) 500 mg 24 hr tablet Take 1 tablet by mouth once daily. - levETIRAcetam (KEPPRA) 1,000 mg tablet Take 1 tablet by mouth twice daily. - cyclobenzaprine (FLEXERIL) 10 mg tablet Take 1 tablet by mouth three times daily as needed for mu (more content not included)... Normal [facility] [place] 08-19-2023 [facility] Telephone (NE50MN) JORY BHATT ([id number]) 1985 F Date Time Provider Department 08/19/23 ANN FORD NE50MN During your visit today, we recorded the following information about you: Ann Ford APRN.CNP 08/19/2023 10:09 AM Signed See recent message. Please contact pt to make sure she has stopped VPA and to see what option she would like 1. increase Keppra to 1500 mg BID 2. add Onfi once daily at bedtime. Ann Ford APRN.Reyna Ardon RN 08/19/2023 10:25 AM Signed Called patient, no answer Voicemail box full. Called and spoke with patients mother, asked her to have Jory call our office to discuss medication changes. She verbalized that she will give her the message. Will await call back SHIRIN Muniz Lynn, RN 08/19/2023 12:29 PM Signed Patient returned call. She reports that she has not stopped VPA yet. We discussed two options and she chose starting Onfi. Verified pharmacy as [facility]. She requests [employer] message with information discussed.( I will send) SHIRIN Muniz Kelly, APRN.CNP 08/19/2023 3:52 PM Addendum Week 1: Onfi 5 mg at bedtime AND continue VPA 500 mg daily Week 2: Onfi 10 mg at bedtime AND Stop VPA She will remain on Keppra 1000 mg bid as well The following approved medication requests have been transmitted electronically. Requested Prescriptions Signed Prescriptions Disp Refills cloBAZam (ONFI) 10 mg tab tablet 30 tablet 5 Sig: Take 1 tablet by mouth daily at bedtime for 180 days. Authorizing Provider: ANN FORD APRN.CNP Langenbeck, Kelly, APRN.CNP 08/19/2023 3:26 PM Signed Addended by: ANN FORD on: 08/19/2023 03:26 PM Modules accepted: Orders Allergies As of Date: 08/19/2023 Noted Allergy Reaction GRASS POLLEN 06/15/2008 ZONEGRAN (ZONISAMIDE) 05/21/2017 2 - Rash 12 - Shortness of Breath Date Reviewed: 08/12/2023 Reviewed by: Rob Bhagat APRN.TELEVISION NEWS PHOTOGRAPHER - Fully Assessed Reason for Visit: Results [95] Primary Visit Diagnosis:Nonintracta ble generalized idiopathic epilepsy without status epilepticus (HCC) [G40.309] Order(s):cloBAZam (ONFI) 10 mg tab tabletTake 1 tablet by mouth daily at bedtime for 180 days.Disp: 30 tabletRfl: 5 Prescriptions as of 08/19/2023 - cloBAZam (ONFI) 10 mg tab tablet Take 1 tablet by mouth daily at bedtime for 180 days. - divalproex ER (DEPAKOTE ER) 500 mg 24 hr tablet Take 1 tablet by mouth once daily. - levETIRAcetam (KEPPRA) 1,000 mg tablet Take 1 tablet by mouth twice daily. - cyclobenzaprine (FLEXERIL) 10 mg tablet Take 1 tablet by mouth three times daily as needed for muscle spasm. - meloxicam (MOBIC) 15 mg tablet Take 1 tablet by mouth once daily. Take with food. - albuterol HFA (PROVENTIL HFA, VENTOLIN HFA) 90 mcg/actuation inhaler EVERY 4 HOURS NEEDED - nicotine (NICODERM) 7 mg/24 hr Apply as directed. - folic acid 1 mg tablet Take 2 mg by mouth. - ketorolac (TORADOL) 10 mg tablet Take 1 tablet by mouth every 12 hours as needed for Pain. - sertraline (ZOLOFT) 50 mg tablet 100mg in the am and 50mg in the pm. - LORazepam (ATIVAN) 0.5 mg tab Take 1 tablet as needed at onset of seizure to abort seizures or for seizure clusters. Problem List As Of Date 08/19/2023 Noted Resolved Generalized anxiety disorder [F41.1] 12/24/2016 Nonintractable generalized idiopathic epilepsy *04/23/2017 PTSD (post-traumatic stress disorder) [F43.10] 04/25/2017 Prescriptions ordered this encounter Disp Refills Start End CLOBAZAM 10 MG TABLET 30 t* 5 08/19/2023 02/15/2024 Route: ORAL Sig: Take 1 tablet by mouth daily at bedtime for 180 days. Encounter Status:Closed by ANN FORD on 08/19/23 Normal [facility] CBC panel Auto (Bld)on 08-12 Erythrocyte distribution width (RBC) [Ratio] 11.5 % 11.5 - 15.0 % [facility] Hematocrit (Bld) [Volume fraction] 43.4 % 36.0 - 46.0 % [facility] Hemoglobin (Bld) [Mass/Vol] 14.9 g/dL 11.5 - 15.5 g/dL [facility] MCH (RBC) [Entitic mass] 35.3 pg High 26.0 - 34.0 pg [facility] MCHC (RBC) [Mass/Vol] 34.3 g/dL 30.5 - 36.0 g/dL [facility] MCV (RBC) [Entitic vol] 102.8 fL High 80.0 - 100.0 fL [facility] Nucleated RBC (Bld) [#/Vol] <0.01 k/uL [facility] Platelet mean volume (Bld) [Entitic vol] 10.1 fL 9.0 - 12.7 fL [facility] Platelets (Bld) [#/Vol] 298 10*3/uL 150 - 400 k/uL [facility] RBC (Bld) [#/Vol] 4.22 10*6/uL 3.90 - 5.2 0 m/uL [facility] WBC (Bld) [#/Vol] 6.06 10*3/uL 3.70 - 11. 00 k/uL [facility] Erythrocyte distribution width (RBC) [Ratio] 11.5 % Normal 11.5-15.0 [facility] Comment on above: Order Comment: Speci men Type: BLOOD SPECIMENOrdering Facility: [facility] Address: [address] [id number] Performed By: #### 5 8410-2 ####[facility] LABCLIA [id number] [facility] [id number] [place] [id number] [place] [address] [facility] Hematocrit (Bld) [Volume fraction] 43.4 % Normal 36.0-46.0 [facility] Comment on above: Order Comment: Speci men Type: BLOOD SPECIMENOrdering Facility: [facility] Address: [address] [address] Performed By: #### 5 8410-2 ####[facility] [id number] [place] [address] [place] Hemoglobin (Bld) [Mass/Vol] 14.9 g/dL Normal 11.5-15.5 [facility] Comment on above: Order Comment: Speci men Type: BLOOD SPECIMENOrdering Facility: [facility] Address: [address] [address] Performed By: #### 5 8410-2 ####[facility] [id number] [place] [address] [place] MCH (RBC) [Entitic mass] 35.3 pg High 26.0-34.0 [facility] Comment on above: Order Comment: Speci men Type: BLOOD SPECIMENOrdering Facility: [facility] Address: [address] [address] Performed By: #### 5 8410-2 ####[facility] [id number] [place] [address] [place] MCHC (RBC) [Mass/Vol] 34.3 g/dL Normal 30.5-36.0 [facility] Comment on above: Order Comment: Speci men Type: BLOOD SPECIMENOrdering Facility: [facility] Address: [address] Performed By: #### 5 8410-2 ####[facility] [id number] [place] [address] [place] MCV (RBC) [Entitic vol] 102.8 fL High 80.0-100.0 [facility] Comment on above: Order Comment: Speci men Type: BLOOD SPECIMENOrdering Facility: [facility] Address: [address] [place], [place] [address] Performed By: #### 5 8410-2 ####[facility] LABCLIA [id number] [place] [address] [place] Nucleated RBC (Bld) [#/Vol] 10*3/uL Normal <0.01 [facility] Comment on above: Order Comment: Speci men Type: BLOOD SPECIMENOrdering Facility: [facility] Address: [address] [place] [address] Performed By: #### 5 8410-2 ####[facility] LABIA [id number] [place] [address] [place] Platelet mean volume (Bld) [Entitic vol] 10.1 fL Normal 9.0-12.7 [facility] Comment on above: Order Comment: Speci men Type: BLOOD SPECIMENOrdering Facility: [facility] Address: [address] [place] [address] Performed By: #### 5 8410-2 ####[facility] LABIA [id number] [place] [address] [place] Platelets (Bld) [#/Vol] 298 10*3/uL Normal 150-400 [facility] Comment on above: Order Comment: Speci men Type: BLOOD SPECIMENOrdering Facility: [facility] Address: [address] [place] [address] Performed By: #### 5 8410-2 ####[facility] LABIA [id number] [place] [address] [place] RBC (Bld) [#/Vol] 4.22 10*6/uL Normal 3.90-5.[address] [facility] Comment on above: Order Comment: Speci men Type: BLOOD SPECIMENOrdering Facility: [facility] Address: [address] [place] [address] Performed By: #### 5 8410-2 ####[facility] LABIA [id number] [place] [address] [place] WBC (Bld) [#/Vol] 6.06 10*3/uL Normal 3.70-11.[address] [facility] Comment on above: Order Comment: Speci men Type: BLOOD SPECIMENOrdering Facility: [facility] Address: [address] [place] [address] Performed By: #### 5 8410-2 ####[facility] LABCLIA [id number] [address]ANDRIN[id number] [facility] CNOVon 08-12-2023 CNOV Office Visit (UCWSTR ) JORY BHATT ([id number]) 1985 F Date Time Provider Department 08/12/23 1:30 PM ROB BHAGAT [facility] During your visit today, we recorded the following information about you: Temperature Pulse Respiration Blood pressure 99.1 degrees 108/minute 18/minute 135/90 Weight 53.3 kg Rob Bhagat APRN.TELEVISION NEWS PHOTOGRAPHER 08/12/2023 2:30 PM Signed Subjective HPI HPI Jory Bhatt is a [...] TABLET - CONSULT TO ORTHOPAEDICS Rob Bhagat APRN.Rob Jones APRN.NATHEN 08/12/2023 3:53 PM Signed Addended by: ROB BHAGAT on: 08/12/2023 03:53 PM Modules accepted: Orders Allergies As of Date: 08/12/2023 Noted Allergy Reaction GRASS POLLEN 06/15/2008 ZONEGRAN (ZONISAMIDE) 05/21/2017 2 - Rash 12 - Shortness of Breath Date Reviewed: 08/12/2023 Reviewed by: Rob Bhagat APRN.TELEVISION NEWS PHOTOGRAPHER - Fully Assessed Reason for Visit: Fall [218] Cmt: X 2 days on Left knee Primary Visit Diagnosis:Knee injuries, left, initial encounter [S89.92XA] Order(s):XR KNEE GENERAL 4V AP BOTH/PA BOTH/LAT/MERC LEFT [3164344] Order #: [id number]. #:[id number] cyclobenzaprine (FLEXERIL) 10 mg tabletTake 1 tablet by mouth three times daily as needed for muscle spasm.Disp: 10 tabletRfl: 0 CONSULT TO ORTHOPAEDICS [9026] Order #: [id number]: 1 FUTURE meloxicam (MOBIC) 15 mg tabletTake 1 tablet by mouth once daily. Take with food.Disp: 15 tabletRfl: 0 Prescriptions as of 08/12/2023 - divalproex ER (DEPAKOTE ER) 500 mg 24 hr tablet Take 1 tablet by mouth once daily. - levETIRAcetam (KEPPRA) 1,000 mg tablet Take 1 tablet by mouth twice daily. - cyclobenzaprine (FLEXERIL) 10 mg tablet Take 1 tablet by mouth three times daily as needed for mus (more content not included)... 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 She states provider talked about sending an rx for steroids and flexeril? Nothing mentioned in provider note about a steroid. Please advise and notify pt. Maddy Dickens LPN, SHIRIN 08/12/2023 3:59 PM Signed Pt called in about medication again. Let her know the Flexeril and Mobic had gone through to [facility] in [place]. Madie Reveles LPN 08/12/2023 4:51 PM Signed Patient given results and verbalized understanding of instructions given. Madie Reveles LPN Allergies As of Date: 08/12/2023 Noted Allergy Reaction GRASS POLLEN 06/15/2008 ZONEGRAN (ZONISAMIDE) 05/21/2017 2 - Rash 12 - Shortness of Breath Date Reviewed: 08/12/2023 Reviewed by: Rob Bhagat APRN.TELEVISION NEWS PHOTOGRAPHER - Fully Assessed Reason for Visit: Medication Problem [65] Prescriptions as of 08/12/2023 - divalproex ER (DEPAKOTE ER) 500 mg 24 hr tablet Take 1 tablet by mouth once daily. - levETIRAcetam (KEPPRA) 1,000 mg tablet Take 1 tablet by mouth twice daily. - cyclobenzaprine (FLEXERIL) 10 mg tablet Take 1 tablet by mouth three times daily as needed for muscle spasm. - meloxicam (MOBIC) 15 mg tablet Take 1 tablet by mouth once daily. Take with food. - albuterol HFA (PROVENTIL HFA, VENTOLIN HFA) 90 mcg/actuation inhaler EVERY 4 HOURS NEEDED - nicotine (NICODERM) 7 mg/24 hr Apply as directed. - folic acid 1 mg tablet Take 2 mg by mouth. - ketorolac (TORADOL) 10 mg tablet Take 1 tablet by mouth every 12 hours as needed for Pain. - sertraline (ZOLOFT) 50 mg tablet 100mg in the am and 50mg in the pm. - LORazepam (ATIVAN) 0.5 mg tab Take 1 tablet as needed at onset of seizure to abort seizures or for seizure clusters. Problem List As Of Date 08/12/2023 Noted Resolved Generalized anxiety disorder [F41.1] 12/24/2016 Nonintractable generalized idiopathic epilepsy *04/23/2017 PTSD (post-traumatic stress disorder) [F43.10] 04/25/2017 Encounter Status:Closed by MADDY MORALES on 08/12/23 [facility] Telephone (NE50MN) JORY BHATT ([id number]) 1985 F Date Time Provider Department 08/12/23 NICOLE LAGUNAS NE50MN During your visit today, we recorded the following information about you: Lorraine Smith 08/12/2023 10:22 AM Signed ORDERS Person requesting order: Jory Viera Phone number: [phone] Order being requested: Labs Facility: [facility] Fax: Email: Patient of Reyna Redmond RN 08/12/2023 11:[address] lab orders for annual visit. Thank you SHIRIN Muniz Kelly, APRN.TELEVISION NEWS PHOTOGRAPHER 08/12/2023 12:20 PM Signed Labs order jose raul Ford APRN.TELEVISION NEWS PHOTOGRAPHER Allergies As of Date: 08/12/2023 Noted Allergy Reaction GRASS POLLEN 06/15/2008 ZONEGRAN (ZONISAMIDE) 05/21/2017 2 - Rash 12 - Shortness of Breath Date Reviewed: 07/07/2023 Reviewed by: Delilah Burr MA - Fully Assessed Reason for Visit: Orders [681] Cmt: Labs Primary Visit Diagnosis:Nonintracta ble generalized idiopathic epilepsy without status epilepticus (HCC) [G40.309] Order(s):LEVETIRACETA M [SQLEVET] Order #: [id number] FUTURE VALPROIC A/DEPAKENE [SQVPA] Order #: [id number] FUTURE CBC [SQCBC] Order #: [id number] FUTURE COMP METABOLIC PANEL [SQCMP] Order #: [id number] FUTURE Prescriptions as of 08/12/2023 - albuterol HFA (PROVENTIL HFA, VENTOLIN HFA) 90 mcg/actuation inhaler EVERY 4 HOURS NEEDED - nicotine (NICODERM) 7 mg/24 hr Apply as directed. - folic acid 1 mg tablet Take 2 mg by mouth. - levETIRAcetam (KEPPRA) 1,000 mg tablet Take 1 tablet by mouth twice daily. - divalproex ER (DEPAKOTE ER) 500 mg 24 hr tablet Take 1 tablet by mouth once daily. - ketorolac (TORADOL) 10 mg tablet Take 1 tablet by mouth every 12 hours as needed for Pain. - sertraline (ZOLOFT) 50 mg tablet 100mg in the am and 50mg in the pm. - LORazepam (ATIVAN) 0.5 mg tab Take 1 tablet as needed at onset of seizure to abort seizures or for seizure clusters. Problem List As Of Date 08/12/2023 Noted Resolved Generalized anxiety disorder [F41.1] 12/24/2016 Nonintractable generalized idiopathic epilepsy *04/23/2017 PTSD (post-traumatic stress disorder) [F43.10] 04/25/2017 Encounter Status:Closed by REYNA DENNEY on 08/12/23 Normal [facility] Comprehensive metabolic 2000 panelon 08-12-2023 Albumin [Mass/Vol] 5.1 g/dL High 3.9-4.9 [facility] Comment on above: Order Comment: Speci men Type: BLOOD SPECIMENOrdering Facility: [facility] Address: [address] [place] [address] Performed By: #### 2 4323-8 ####[facility] LABCLIA [id number] [place] [address] [place] ALP [Catalytic activity/Vol] 78 U/L Normal 34-123 [facility] Comment on above: Order Comment: Speci men Type: BLOOD SPECIMENOrdering Facility: [facility] Address: [address] [place] [address] Performed By: #### 2 4323-8 ####[facility] LABCLIA [id number] [place] [address] [place] ALT [Catalytic activity/Vol] 63 U/L High 7-38 [facility] Comment on above: Order Comment: Speci men Type: BLOOD SPECIMENOrdering Facility: [facility] Address: [address] [place] [address] Performed By: #### 2 4323-8 ####[facility] LABCLIA [id number] [place] [address] [place] Anion gap [Moles/Vol] 15 mmol/L Normal 9-18 [facility] Comment on above: Order Comment: Speci men Type: BLOOD SPECIMENOrdering Facility: [facility] Address: [address] [place] [address] Performed By: #### 2 4323-8 ####[facility] LABCLIA [id number] [place] [address] [place] AST [Catalytic activity/Vol] 92 U/L High 13-35 [facility] Comment on above: Order Comment: Speci men Type: BLOOD SPECIMENOrdering Facility: [facility] Address: [address] [place] [address] Performed By: #### 2 4323-8 ####[facility] LABCLIA [id number] [place] [address] [place] Bilirubin [Mass/Vol] 0.4 mg/dL Normal 0.2-1.3 [facility] Comment on above: Order Comment: Speci men Type: BLOOD SPECIMENOrdering Facility: [facility] Address: [address] [address] Performed By: #### 2 4323-8 ####[facility] LABCLIA [id number] [place] [address] [place] Calcium [Mass/Vol] 9.7 mg/dL Normal 8.5-10.2 [facility] Comment on above: Order Comment: Speci men Type: BLOOD SPECIMENOrdering Facility: [facility] Address: [address] [address] Performed By: #### 2 4323-8 ####[facility] LABCLIA [id number] [place] [address] [place] Chloride [Moles/Vol] 97 mmol/L Normal 97-105 [facility] Comment on above: Order Comment: Speci men Type: BLOOD SPECIMENOrdering Facility: [facility] Address: [address] [address] Performed By: #### 2 4323-8 ####[facility] LABCLIA [id number] [place] [address] [place] CO2 [Moles/Vol] 26 mmol/L Normal 22-30 [facility] Comment on above: Order Comment: Speci men Type: BLOOD SPECIMENOrdering Facility: [facility] Address: [address] Performed By: #### 2 4323-8 ####[facility] LABCLIA [id number] [place] [address] [place] Creatinine [Mass/Vol] 0.70 mg/dL Normal 0.58-0.96 [facility] Comment on above: Order Comment: Speci men Type: BLOOD SPECIMENOrdering Facility: [facility] Address: [address] [address] Performed By: #### 2 4323-8 ####[facility] LABCLIA [id number] [place] [address] [place] Creatinine and Glomerular filtration rate.predicted panel (S/P/Bld) 113 mL/min/1.73m??? Normal >=60 [facility] Comment on above: Order Comment: John madden Type: BLOOD SPECIMENOrdering Facility: [facility] Address: [address] [address] Result Comment: Reshma mated Glomerular Filtration Rate (eGFR) is calculated using the 2020 CKD-EPI creatinine equation. This equation utilizes serum creatinine, sex, and age as parameters. The creatinine assay has traceable calibration to isotope dilution-mass spectrometry. Refer to KDIGO guidelines for clinical interpretation. In patients with unstable renal function, e.g. those with acute kidney injury, the eGFR may not accurately reflect actual GFR. Performed By: #### 2 4323-8 ####[facility] [id number] [place] [address] [place] Glucose [Mass/Vol] 90 mg/dL Normal 74-99 [facility] Comment on above: Order Comment: John madden Type: BLOOD SPECIMENOrdering Facility: [facility] Address: [address] [place] [address] Result Comment: The [place] Diabetes Association (ADA) provides guidance for cutoff values for fasting glucose and random glucose. The ADA defines fasting as no caloric intake for at least 8 hours. Fasting plasma glucose results between 100 to 125 mg/dL indicate increased risk for diabetes (prediabetes). Fasting plasma glucose results greater than or equal to 126 mg/dL meet the criteria for diagnosis of diabetes. In the absence of unequivocal hyperglycemia, results should be confirmed by repeat testing. In a patient with classic symptoms of hyperglycemia or hyperglycemic crisis, random plasma glucose results greater than or equal to 200 mg/dL meet the criteria for diagnosis of diabetes. Reference: Standards of Medical Care in Diabetes 2016, [place] Diabetes Association. Diabetes Care. 2016.39(Suppl 1). Performed By: #### 2 4323-8 ####[facility] LABIA [id number] [place] [address] [place] Potassium [Moles/Vol] 4.3 mmol/L Normal 3.7-5.1 [facility] Comment on above: Order Comment: Speci men Type: BLOOD SPECIMENOrdering Facility: [facility] Address: [address] [place] [address] Performed By: #### 2 4323-8 ####[facility] LABCLIA [id number] [place] [address] [place] Protein [Mass/Vol] 8.2 g/dL High 6.3-8.0 [facility] Comment on above: Order Comment: Speci men Type: BLOOD SPECIMENOrdering Facility: [facility] Address: [address] [place] [address] Performed By: #### 2 4323-8 ####[facility] LABCLIA [id number] [place] [address] [place] Sodium [Moles/Vol] 138 mmol/L Normal 136-144 [facility] Comment on above: Order Comment: Speci men Type: BLOOD SPECIMENOrdering Facility: [facility] Address: [address] [place] [address] Performed By: #### 2 4323-8 ####[facility] LABCLIA [id number] [place] [address] [place] Urea nitrogen [Mass/Vol] 10 mg/dL Normal 7-21 [facility] Comment on above: Order Comment: Speci men Type: BLOOD SPECIMENOrdering Facility: [facility] Address: [address] [place] [address] Performed By: #### 2 4323-8 ####[facility] LABCLIA [id number] [place] [address] [place] Valproate SerPl-mCncon 08-12 Valproate [Mass/Vol] 25.4 ug/mL Low 50.0-100.0 [facility] Comment on above: Order Comment: Speci men Type: BLOOD SPECIMENOrdering Facility: [facility] Address: [address] [facility] [place] [place] [address] Result Comment: Refe rence ranges and high/low indicator flags are provided as general guidelines only. The treating physician must determine appropriate target levels/dosing based on the specific clinical situation. Performed By: #### 4 086-5 ####[facility] LABCLIA [id number] [facility] [id number] [address] [place] XR KNEE 4V AP/PA BOTH+LAT/ME R LTon 08-12-2023 XR KNEE 4V AP/PA BOTH+LAT/ABY LT * * *Final Report* * * DATE OF EXAM: Aug 12 2023 2:05PM WOX 5202 - XR KNEE 4V AP/PA BOTH+LAT/ABY LT / PROCEDURE REASON: Knee injuries, left, initial encounter * * * * Physician Interpretation * * * * TITLE: XR KNEE 4V AP/PA BOTH+LAT/ABY LT CLINICAL INDICATION: Pain TECHNIQUE: AP, PA, merchant radiographs of both knees and lateral radiograph of the left knee COMPARISON: None FINDINGS: Left knee: Moderate suprapatellar joint effusion. No acute fracture or dislocation identified. Mild medial compartmental joint space narrowing. Right knee: No acute fracture or dislocation. Mild medial compartmental joint space narrowing. IMPRESSION: Moderate left suprapatellar joint effusion. No radiographic evidence of acute osseous injury. Packing Machine Tender: LUZMA Transcribe Date/Time: Aug 12 2023 2:06P Dictated by : IDANIA ALMAZAN MD This examination was interpreted and the report reviewed and electronically signed by: IDANIA ALMAZAN MD on Aug 12 2023 2:08PM EST [id number] Normal [facility] XR KNEE GENERAL 4V AP BOTH/P A BOTH/LAT/MERC LEFTon 08-12-2023 [facility] XR Knee - left 4 Viewson IMPRESSION: Moderate left suprapatellar joint effusion. No radiographic evidence of acute osseous injury. Packing Machine Tender: [facility] Transcribe Date/Time: Aug 12 2023 2:06P Dictated by : IDANIA ALMAZAN MD This examination was interpreted and the report reviewed and electronically signed by: IDANIA ALMAZAN MD on Aug 12 2023 2:08PM [facility] DIVISION OF RADIOLOGY * * *Final Report* * * DATE OF EXAM: Aug 12 2023 2:05PM WOX 5202 - XR KNEE 4V AP/PA BOTH+LAT/ABY LT / PROCEDURE REASON: Knee injuries, left, initial encounter * * * * Physician Interpretation * * * * TITLE: XR KNEE 4V AP/PA BOTH+LAT/ABY LT CLINICAL INDICATION: Pain TECHNIQUE: AP, PA, merchant radiographs of both knees and lateral radiograph of the left knee COMPARISON: None FINDINGS: Left knee: Moderate suprapatellar joint effusion. No acute fracture or dislocation identified. Mild medial compartmental joint space narrowing. Right knee: No acute fracture or dislocation. Mild medial compartmental joint space narrowing. DIVISION OF RADIOLOGY Provider, [facility] - 08/12/2023 * * *Final Report* * * DATE OF EXAM: Aug 12 2023 2:05PM WOX 5202 - XR KNEE 4V AP/PA BOTH+LAT/ABY LT / PROCEDURE REASON: Knee injuries, left, initial encounter * * * * Physician Interpretation * * * * TITLE: XR KNEE 4V AP/PA BOTH+LAT/ABY LT CLINICAL INDICATION: Pain TECHNIQUE: AP, PA, merchant radiographs of both knees and lateral radiograph of the left knee COMPARISON: None FINDINGS: Left knee: Moderate suprapatellar joint effusion. No acute fracture or dislocation identified. Mild medial compartmental joint space narrowing. Right knee: No acute fracture or dislocation. Mild medial compartmental joint space narrowing. IMPRESSION IMPRESSION: Moderate left suprapatellar joint effusion. No radiographic evidence of acute osseous injury. Packing Machine Tender: PSCB Transcribe Date/Time: Aug 12 2023 2:06P Dictated by : IDANIA ALMAZAN MD This examination was interpreted and the report reviewed and electronically signed by: IDANIA ALMAZAN MD on Aug 12 2023 2:08PM [facility] Radiology Study observation (narrative) [facility] XR Knee - left 4 ViewsOrdere d By: Ccf Provider on 08-12-2023 [facility] levETIRAcetam SerPl-mCncon 0 08-12-2023 levETIRAcetam [Mass/Vol] 26.7 ug/mL Normal 12.0-46.0 [facility] Comment on above: Order Comment: Speci men Type: BLOOD SPECIMENOrdering Facility: [facility] Address: [address] [place] [address] Result Comment: This test is not suitable for patients receiving treatment with the drug brivaracetam (Briviact). The drug causes an interference that may lead to falsely elevated levetiracetam results. Reference ranges and high/low indicator flags are provided as general guidelines only. The treating physician must determine appropriate target levels/dosing based on the specific clinical situation. This test was developed and its performance characteristics determined by [facility]'s [facility] Pathology and [facility] [place] ([facility]). It has not been cleared or approved by the FDA. [facility] is regulated under CLIA as qualified to perform high-complexity testing. This test is used for clinical purposes. It should not be regarded as investigational or for research. Performed By: #### 3 0471-7 ####[facility] LABCLIA [id number] [address] [facility] [id number] [address] [facility] CNOVon 07-07-2023 CNOV Office Visit (WSTR ) JORY VIERA ([id number]) 1985 F Date Time Provider Department 07/07/23 2:00 PM BRETT SORTO [facility] During your visit today, we recorded the following information about you: Temperature Pulse Respiration Blood pressure 97.4 degrees 93/minute 18/minute 126/86 Weight 53.9 kg Brett Sorto MD 07/07/2023 2:35 PM Signed Patient presents with: Finger Pain: R hand fourth finger infection x3 days HPI: Skin Lesion: Location: right 4th fingernail Duration: pulled a split nail off the corner a few days ago Pruritis/Pain: no pain, has some numbness Change: no Drainage/blister/pust ule/ulceration: no drainage Treatment: bandage, rubbing alcohol ALLERGIES: [...] 2 % TOPICAL OINTMENT Brett Sorto MD Allergies As of Date: 07/07/2023 Noted Allergy Reaction GRASS POLLEN 06/15/2008 ZONEGRAN (ZONISAMIDE) 05/21/2017 2 - Rash 12 - Shortness of Breath Date Reviewed: 07/07/2023 Reviewed by: Delilah Burr MA - Fully Assessed Reason for Visit: Finger Pain [1583] Cmt: R hand fourth finger infection x3 days Primary Visit Diagnosis:Fingernail injury, right, initial encounter [S69.91XA] Order(s):mupirocin (BACTROBAN) 2 % ointmentApply to affected area twice daily for 10 days.Disp: 15 gRfl: 0 Prescriptions as of 07/07/2023 - mupirocin (BACTROBAN) 2 % ointment Apply to affected area twice daily for 10 days. - albuterol HFA (PROVENTIL HFA, VENTOLIN HFA) 90 mcg/actuation inhaler EVERY 4 HOURS NEEDED - nicotine (NICODERM) 7 mg/24 hr Apply as directed. - folic acid 1 mg tablet Take 2 mg by mouth. - levETIRAcetam (KEPPRA) 1,000 mg tablet Take 1 tablet by mouth twice daily. - divalproex ER (DEPAKOTE ER) 500 mg 24 hr tablet Take 1 tablet by mouth once daily. - ketorolac (TORADOL) 10 mg tablet Take 1 tablet by mouth every 12 hours as needed for Pain. - sertraline (ZOLOFT) 50 mg tablet 100mg in the am and 50mg in the pm. - LORazepam (ATIVAN) 0.5 mg tab Take 1 tablet as needed at onset of seizure to abort seizures or for seizure clusters. Problem List As Of Date 07/07/2023 Noted Resolved Generalized anxiety disorder [F41.1] 12/24/2016 Nonintractable generalized idiopathic epilepsy *04/23/2017 PTSD (post-traumatic stress disorder) [F43.10] 04/25/2017 Prescriptions ordered this encounter Disp Refills Start End MUPIROCIN 2 % TOPICAL OINTMENT 15 g 0 07/07/2023 07/17/2023 Route: TOPICAL Sig: Apply to affected area twice daily for 10 days. Encounter Status:Closed by BRETT SORTO on 07/07/23 Normal [facility] Levetiracetamon 06-22-2020 levETIRAcetam [Mass/Vol] 36.2 ug/mL Normal 12.0-46.0 [facility] Comment on above: Result Comment: This test is not suitable for patients receiving treatment with the drug brivaracetam (Briviact). The drug causes an interference that may lead to falsely elevated levetiracetam results. Reference ranges and high/low indicator flags are provided as general guidelines only. The treating physician must determine appropriate target levels/dosing based on the specific clinical situation. This test was developed and its performance characteristics determined by [facility]'s [facility] [place] ( [facility]). It has not been cleared or approved by the FDA. [facility] is regulated under CLIA as qualified to perform high complexity testing. This test is used for clinical purposes. It should not be regarded as investigational or for research. Performing Laboratory: [place] [address] Performed By: #### K EPPX #### [facility] [address] [place], [place] [address] Comprehensive Metabolic Pane artemio 06-20-2020 Albumin [Mass/Vol] 4.6 g/dL Normal 3.9-4.9 [facility] Comment on above: Performed By: #### C MP #### [facility] [address] [place], [place] [address] ALP [Catalytic activity/Vol] 46 U/L Normal 34-123 [facility] Comment on above: Performed By: #### C MP #### [facility] [address] [place], [place] [address] ALT [Catalytic activity/Vol] 13 U/L Normal 7-38 [facility] Comment on above: Performed By: #### C MP #### [facility] [address] [place], [place] [address] Anion gap [Moles/Vol] 12 mmol/L Normal 9-18 [facility] Comment on above: Performed By: #### C MP #### [facility] [address] [place], [place] [address] AST [Catalytic activity/Vol] 25 U/L Normal 13-35 [facility] Comment on above: Performed By: #### C MP #### [facility] [address] [place], [place] [address] Bilirubin [Mass/Vol] 0.3 mg/dL Normal 0.2-1.3 [facility] Comment on above: Performed By: #### C MP #### [facility] [address] [place], [place] [address] Calcium [Mass/Vol] 9.3 mg/dL Normal 8.5-10.2 [facility] Comment on above: Performed By: #### C MP #### [facility] [address] [place], [place] [address] Chloride [Moles/Vol] 99 mmol/L Normal 97-105 [facility] Comment on above: Performed By: #### C MP #### [facility] [address] [place], [place] [address] CO2 [Moles/Vol] 29 mmol/L Normal 22-30 [facility] Comment on above: Performed By: #### C MP #### [facility] [address] [place], [place] [address] Creatinine [Mass/Vol] 0.72 mg/dL Normal 0.58-0.96 [facility] Comment on above: Performed By: #### C MP #### [facility] [address] [place], [place] [address] Glucose [Mass/Vol] 105 mg/dL High 74-99 [facility] Comment on above: Result Comment: The [place] Diabetes Association (ADA) provides guidance for cutoff values for fasting glucose and random glucose. The ADA defines fasting as no caloric intake for at least 8 hours.Fasting plasma glucose results between 100 to 125 mg/dL indicate increased risk for diabetes (prediabetes). Fasting plasma glucose results greater than or equal to 126 mg/dL meet the criteria for diagnosis of diabetes. In the absence of unequivocal hyperglycemia, results should be confirmed by repeat testing. In a patient with classic symptoms of hyperglycemia or hyperglycemic crisis, random plasma glucose results greater than or equal to 200 mg/dL meet the criteria for diagnosis of diabetes. Reference: Standards of Medical Care in Diabetes 2016; [place] Diabetes Association. Diabetes Care. 2016;39(Suppl 1). Performed By: #### C MP #### [facility] [address] [place], [place] [address] Potassium [Moles/Vol] 4.2 mmol/L Normal 3.7-5.1 [facility] Comment on above: Performed By: #### C MP #### [facility] [address] [place], [place] [address] Protein [Mass/Vol] 7.5 g/dL Normal 6.3-8.0 [facility] Comment on above: Performed By: #### C MP #### [facility] [address] [place], [place] [address] Sodium [Moles/Vol] 140 mmol/L Normal 136-144 [facility] Comment on above: Performed By: #### C MP #### [facility] [address] [place], [place] [address] Urea nitrogen [Mass/Vol] 11 mg/dL Normal 7-21 [facility] Comment on above: Performed By: #### C MP #### [facility] [address] [place] [address] Hemogramon 06-20-2020 Erythrocyte distribution width (RBC) [Ratio] 12.4 % Normal 11.7-14.4 [facility] Comment on above: Performed By: #### C BC1 #### [facility] [address] [place] [address] Hematocrit (Bld) [Volume fraction] 40.3 % Normal 34.1-44.9 [facility] Comment on above: Performed By: #### C BC1 #### [facility] [address] [address] Hemoglobin (Bld) [Mass/Vol] 13.7 g/dL Normal 11.2-15.7 [facility] Comment on above: Performed By: #### C BC1 #### [facility] [address] [address] MCH (RBC) [Entitic mass] 35.0 pg High 25.6-32.2 [facility] Comment on above: Performed By: #### C BC1 #### [facility] [address] [address] MCHC 34.0 % Normal 31.6-34.8 [facility] Comment on above: Performed By: #### C BC1 #### [facility] [address] [place] [address] MCV (RBC) [Entitic vol] 103.1 fL High 79.4-94.8 [facility] Comment on above: Performed By: #### C BC1 #### [facility] [address] [place] [address] Platelet mean volume (Bld) [Entitic vol] 10.4 fL Normal 9.4-12.3 [facility] Comment on above: Performed By: #### C BC1 #### [facility] [address] [place] [address] Platelets (Bld) [#/Vol] 289 10*3/uL Normal 182-369 [facility] Comment on above: Performed By: #### C BC1 #### [facility] [address] [address] RBC 3.91 mil/cmm Low 3.93-5.22 [facility] Comment on above: Performed By: #### C BC1 #### [facility] [address] [place] [id number] RDW SD 46.6 fl High 36.4-46.3 [facility] Comment on above: Performed By: #### C BC1 #### [facility] [address] [place], [place] [address] WBC (Bld) [#/Vol] 6.16 10*3/uL Normal 3.98-10.04 [facility] Comment on above: Performed By: #### C BC1 #### [place] [id number] MDRD GFRon 06-20-2020 GFR/1.73 sq M.predicted among non-blacks MDRD (S/P/Bld) [Vol rate/Area] mL/min/{1.73_m2} Normal >60mL/min/1.73 m2 [facility] Comment on above: Result Comment: If t he patient is , multiply the result by 1.210. Performed By: #### G FR #### [place] [id number] Valproic Acid,[place].on 2019 Valproic Acid,[place]. 70.3 ug/mL Normal 50.0-100.0 [facility] Comment on above: Result Comment: Refe rence ranges and high/low indicator flags are provided as general guidelines only. The treating physician must determine appropriate target levels/dosing based on the specific clinical situation. Performed By: #### V ELEANOR #### [facility] [address] [place], [place] [address] Vital Signs Date Time Vital Sign Value Performing Clinician Sang hicks 04-23-2024 09:45-0400 Body height 158.8 cm Nicole Lagunas MD Work Phone: [facility] 04-23-2024 09:45-0400 Body mass index (BMI) [Ratio] 20.7 kg/m2 Nicole Lagunas MD Work Phone: [facility] 04-23-2024 09:45-0400 Body weight 52.16 kg Nicole Lagunas MD Work Phone: [facility] 04-23-2024 09:45-0400 Diastolic blood pressure 76 mm[Hg] Nicole Lagunas MD Work Phone: [facility] 04-23-2024 09:45-0400 Heart rate 69 /min Nicole Lagunas MD Work Phone: [facility] 04-23-2024 09:45-0400 Respiratory rate 16 /min Nicole Lagunas MD Work Phone: [facility] 04-23-2024 09:45-0400 Systolic blood pressure 111 mm[Hg] Nicole Lagunas MD Work Phone: [facility] 08-12-2023 13:32-0400 Body temperature 99.1 [degF] Rob Bhagat LEAN LEADER.TELEVISION NEWS PHOTOGRAPHER Work Phone: [facility] 08-12-2023 13:32-0400 Body weight 53.34 kg Rob Bhagat LEAN LEADER.TELEVISION NEWS PHOTOGRAPHER Work Phone: [facility] 08-12-2023 13:32-0400 Diastolic blood pressure 90 mm[Hg] Rob Bhagat LEAN LEADER.TELEVISION NEWS PHOTOGRAPHER Work Phone: [facility] 08-12-2023 13:32-0400 Heart rate 108 /min Rob Bhagat LEAN LEADER.TELEVISION NEWS PHOTOGRAPHER Work Phone: [facility] 08-12-2023 13:32-0400 Respiratory rate 18 /min Rob Bhagat LEAN LEADER.TELEVISION NEWS PHOTOGRAPHER Work Phone: [facility] 08-12-2023 13:32-0400 SaO2% (BldA) [Mass fraction] 95 % Rob Bhagat LEAN LEADER.TELEVISION NEWS PHOTOGRAPHER Work Phone: [facility] 08-12-2023 13:32-0400 Systolic blood pressure 135 mm[Hg] Rob Bhagat LEAN LEADER.TELEVISION NEWS PHOTOGRAPHER Work Phone: [facility] 07-07-2023 13:54-0400 Body temperature 97.39 [degF] Brett Sorto MD Work Phone: [facility] 07-07-2023 13:54-0400 Body weight 53.89 kg Brett Sorto MD Work Phone: [facility] 07-07-2023 13:54-0400 Diastolic blood pressure 86 mm[Hg] Brett Sorto MD Work Phone: [facility] 07-07-2023 13:54-0400 Heart rate 93 /min Brett Sorto MD Work Phone: [facility] 07-07-2023 13:54-0400 Respiratory rate 18 /min Brett Sorto MD Work Phone: [facility] 07-07-2023 13:54-0400 SaO2% (BldA) [Mass fraction] 98 % Brett Sorto MD Work Phone: [facility] 07-07-2023 13:54-0400 Systolic blood pressure 126 mm[Hg] Brett Sorto MD Work Phone: [facility] Encounters Encounter Date Encounter Type Care Provider Facility Start: 04-27-2024 End: 04-28-2024 ambulatory NICOLE LAGUNAS Facility:[facility] Start: 04-23-2024 End: 04-23-2024 ambulatory NICOLE LAGUNAS Facility:[facility] Start: 04-23-2024 End: 04-23-2024 Patient encounter procedure Nicole Lagunas MD Work Phone: Neurology Epilepsy Comment on above: Nonintractable gener alized idiopathic epilepsy without status epilepticus (HCC) (Primary Dx) Start: 09-09-2023 End: 09-09-2023 ambulatory CLAYTON CALDERÓN Facility:[facility] Start: 09-09-2023 End: 09-09-2023 ambulatory Mike Moore PT Work Phone: [facility] Comment on above: Patellar dislocation , left, sequela (Primary Dx) Start: 09-04-2023 End: 09-04-2023 ambulatory Mike Moore PT Work Phone: [facility] Comment on above: Patellar dislocation , left, sequela Start: 08-29-2023 Telephone encounter Nicole White am, MD Work Phone: Neurology Comment on above: medication concern ( cloBAZam (ONFI) 10 mg tab tablet) Start: 08-22-2023 End: 08-22-2023 ambulatory [facility] Facility:[facility] Start: 08-22-2023 End: 08-22-2023 Patient encounter procedure Clayton Stephane DO Work Phone: [facility] [place] Comment on above: Patellar dislocation , left, sequela (Primary Dx); Knee injuries, left, initial encounter Start: 08-19-2023 Telephone encounter Ann ta APRN.TELEVISION NEWS PHOTOGRAPHER Work Phone: Neurology Comment on above: Results Start: 08-12-2023 End: 08-13-2023 ambulatory ANN FORD Facility:[facility] Start: 08-12-2023 Telephone encounter Nicole White am, MD Work Phone: Neurology Comment on above: Orders (Labs) Refill Request Medication Problem Start: 08-12-2023 End: 08-12-2023 Subsequent hospital visit by physician Xr [facility] Rad Work Phone: Radiology Comment on above: Knee injuries, left, initial encounter [S89.92XA] Start: 08-12-2023 End: 08-12-2023 Patient encounter procedure Rob Bhagat APRN.TELEVISION NEWS PHOTOGRAPHER Work Phone: [facility] Comment on above: Knee injuries, left, initial encounter (Primary Dx) Start: 07-07-2023 End: 07-07-2023 [facility] Facility:[facility] Start: 07-07-2023 End: 07-07-2023 Patient encounter procedure Brett Sorto MD Work Phone: [facility] Comment on above: Fingernail injury, r ight, initial encounter (Primary Dx) Start: 06-13-2022 ambulatory Ann delgado LEAN LEADER.TELEVISION NEWS PHOTOGRAPHER Work Phone: [place] [facility] Comment on above: Lab results Start: 06-13-2022 E-mail encounter naty caldera caregiver Ann Ford LEAN LEADER.TELEVISION NEWS PHOTOGRAPHER Work Phone: [facility] Start: 06-04-2022 Telephone encounter Nicole White am, MD Work Phone: Neurology Comment on above: Orders (Labs) Procedures Date Procedure Procedure Detail Performing Clinician Start: 08-12-2023 Radiologic exam knee complete 4/more views Rob Bhagat APRN.TELEVISION NEWS PHOTOGRAPHER Work Phone: Start: 07-01-2017 Adult depression screening assessment Nicole Lagunas MD Work Phone: Plan of Treatment Date Care Activity Detail Author Start: 11-11-2024 End: 11-11-2024 Patient encounter procedure 11/11/2024 9:20 AM EST Office Visit Neurology Epilepsy [address] [place], [place] [id number] Nicole Lagunas MD [address] [place], [place] [id number] 6 month follow up Neurology Epilepsy Comment on above: 6 month follow up Start: 08-01-2024 Covid-19 Vaccine ( season) Covid-19 Vaccine () [facility] Start: 08-01-2024 Influenza vaccination [facility] Start: 04-23-2024 End: 07-23-2024 CBC panel - Blood by Automated count COMPLETE BLOOD COUNT Lab Routine Nonintractable generalized idiopathic epilepsy without status epilepticus (HCC) Expected: 04/23/2024, Expires: 07/23/2024 [facility] Comment on above: Expected: 04/23/2024 , Expires: 07/23/2024 Start: 04-23-2024 End: 07-23-2024 Comprehensive metabolic 2000 panel - Serum or Plasma COMPREHENSIVE METABOLIC PANEL Lab Routine Nonintractable generalized idiopathic epilepsy without status epilepticus (HCC) Expected: 04/23/2024, Expires: 07/23/2024 [facility] Comment on above: Expected: 04/23/2024 , Expires: 07/23/2024 Start: 04-23-2024 End: 07-23-2024 levETIRAcetam [Mass/volume] in Serum or Plasma LEVETIRACETAM Lab Routine Nonintractable generalized idiopathic epilepsy without status epilepticus (HCC) Expected: 04/23/2024, Expires: 07/23/2024 [facility] Work Phone: Comment on above: Expected: 04/23/2024 , Expires: 07/23/2024 Start: 2024 Screening for malign ant neoplasm of breast Mammogram Screening [facility] Start: 12-01-2023 Behavioral Health Screening Behavioral Health Screening [facility] Start: 08-12-2023 End: 10-12-2023 Comprehensive metabolic 2000 panel - Serum or Plasma [facility] Work Phone: Comment on above: Expected: 08/12/2023 , Expires: 10/12/2023 Start: 08-12-2023 End: 10-12-2023 levETIRAcetam [Mass/volume] in Serum or Plasma [facility] Work Phone: Comment on above: Expected: 08/12/2023 , Expires: 10/12/2023 Start: 08-12-2023 End: 10-12-2023 Valproate [Mass/volume] in Serum or Plasma [facility] Work Phone: Comment on above: Expected: 08/12/2023 , Expires: 10/12/2023 Start: 08-01-2023 Covid-19 Vaccine () Covid-19 Vaccine () [facility] Start: 08-01-2023 Influenza vaccination [facility] Start: 12-01-2022 DEPRESSION ASSESSMENT DEPRESSION ASS ESSMENT [facility] Start: 08-01-2022 Influenza vaccination INFLUENZA (#1) [facility] Start: 06-04-2022 End: 08-04-2022 CBC W Auto Differential panel - Blood CBC + DIFF Lab Routine Nonintractable generalized idiopathic epilepsy without status epilepticus (HCC) Expected: 06/04/2022, Expires: 08/04/2022 [facility] Work Phone: Comment on above: Expected: 06/04/2022 , Expires: 08/04/2022 Start: 06-04-2022 End: 08-04-2022 Comprehensive metabolic 2000 panel - Serum or Plasma COMP METABOLIC PANEL Lab Routine Nonintractable generalized idiopathic epilepsy without status epilepticus (HCC) Expected: 06/04/2022, Expires: 08/04/2022 [facility] Work Phone: Comment on above: Expected: 06/04/2022 , Expires: 08/04/2022 Start: 06-04-2022 End: 08-04-2022 levETIRAcetam [Mass/volume] in Serum or Plasma LEVETIRACETAM Lab Routine Nonintractable generalized idiopathic epilepsy without status epilepticus (HCC) Expected: 06/04/2022, Expires: 08/04/2022 [facility] Work Phone: Comment on above: Expected: 06/04/2022 , Expires: 08/04/2022 Start: 06-04-2022 End: 08-04-2022 Valproate [Mass/volume] in Serum or Plasma VALPROIC A/DEPAKENE Lab Routine Nonintractable generalized idiopathic epilepsy without status epilepticus (HCC) Expected: 06/04/2022, Expires: 08/04/2022 [facility] Work Phone: Comment on above: Expected: 06/04/2022 , Expires: 08/04/2022 Start: 07-01-2018 Adult depression screening assessment DEPRESSION SCREENING [facility] Start: 2014 HPV TESTING HPV TESTING [facility] Start: 2014 Screening for malign ant neoplasm of cervix HPV Testing [facility] Start: 2005 PAP TESTING PAP TESTING [facility] Start: 2005 Screening for malign ant neoplasm of cervix [facility] Start: 2003 Hepatitis B Vaccine (1 of 3 - 19+ 3-dose series) Hepatitis B Vaccine (1 of 3 - 19+ 3-dose series) [facility] Start: 2003 Urine microalbumin profile [facility] Start: 2002 Depression Screening Depression Scre ening [facility] Start: 2002 HEPATITIS C SCREENING HEPATITIS C [facility] Start: 2002 Hepatitis C screening Hepatitis C Sc [facility] Start: 2002 HIV SCREENING HIV SCREENING [facility] Start: 2002 HIV screening HIV Screening [facility] Start: 1990 PNEUMOCOCCAL (1 - PCV) PNEUMOCOCCAL (1 - PCV) [facility] Start: 1990 Pneumococcal vaccination [facility] Start: 1984 COVID-19 VACCINE (#1) COVID-19 VACCI NE (#1) [facility] Start: 1984 HEPATITIS B (1 of 3 - 3-dose series) HEPATITIS B (1 of 3 - 3-dose series) [facility] Start: 1984 Hepatitis B Vaccine (1 of 3 - 3-dose series) Hepatitis B Vaccine (1 of 3 - 3-dose series) [facility] Payers Date Payer Category Payer Medicare [id number] 2022 Unknown [id number] 2021 Medicaid [employer] [id number] 2021-Present [phone] [address] [place] [address] Medicaid [id number] 2021 Medicare MEDICARE MEDICAR E A AND B [id number] 2021-Present [phone] [address] [address] [place] [address] Medicare [id number] Social History Date Type Detail Facility Start: 08-01-2022 End: 04-23-2024 Tobacco smoking status AZIS Smokes tobacco daily [facility] History of tobacco use Cigarette Smoker [facility] Start: 08-16-2021 End: 08-12-2023 Alcohol intake Current drinker of alcohol (finding) [facility] Start: 11-18-2007 History SDOH Alcohol Comment occassion [facility] Start: 03-23-2014 End: 08-01-2022 Tobacco Comment 3-5 cigarettes daily [facility] Start: 1984 Sex Assigned At Not on file [facility] Start: 08-01-2022 End: 04-23-2024 Tobacco use and exposure Smokeless tobacco non-user [facility] Start: 12-13-2022 End: 07-07-2023 History of Social function [facility] Start: 12-13-2022 End: 07-07-2023 Tobacco use panel [facility] National Score (1-10 0), lower number is lower risk 57 [facility] History of tobacco use Passive smoker [facility] Clinical Notes 06-04-2022 to 04-23-2024 Nicole Lagunas MD - 04/23/2024 10:00 AM Mike Saucedo, PT - 09/09/2023 12:47 PM Mike Saucedo, PT - 09/04/2023 1:47 PM EDTTelephone Encounter - Reyna Denney RN - 08/29/2023 4:39 PM EDT Note Date & Type Note Facility 04-23-2024 Note HNO ID: [id number] Author: NICOLE LAGUNAS MD Service: ? Author Type: Physician Type: Progress Notes Filed: 04/23/2024 11:11 Note Text: This is a regular in-office established patient visit. Chief Complaint: ?follow up? Interval History: Patient accompanied by: none History given by: patient, records Last Visit Date: 08/01/22 39 year old year old female presents for [...] says jerks in sleep resolved Memory: fair Interim History: 08/01/22 - last visit Jan 2023 - two seizures within days of each other, attributes it to her leaving her and the stress 08/19/23 - elevated LFTs, stopped VPA, replaced with Onfi 10 mg Qhs and increased Keppra 1500 mg BID 08/29/23 - did not tolerate Onfi, stopped it and only increased Keppra to 1500 mg BID She denied any seizures between 08/2022 and 01/2023. She also denied any seizures between 01/2023 and now. Her last seizures were in Jan 2023. Seizures prior to Jan 2023 were >4 years prior. She reports compliance with medication but has changed the way she takes it. She is only taking LEV IR 1500 mg once daily in the morning and not BID as she is supposed to. She denied side effects but she is unable to remember to take the evening dose. Reviewed ROS and PFSH without any change [...] on File Prior to Visit Medication Sig meloxicam (MOBIC) 15 mg tablet Take 1 tablet by mouth once daily. Take with food. Levetiracetam 750 mg tablet Takes 2 tablets by mouth once daily every morning. No current facility-administered medications on file prior to visit. Results reviewed: WBC Date Value Ref Range Status 08/12/2023 6.06 3.70 - 11.00 k/uL Final RBC Date Value Ref Range Status 08/12/2023 4.22 3.90 - 5.20 m/uL Final Hemoglobin Date Value Ref Range Status 08/12/2023 14.9 11.5 - 15.5 g/dL Final Hematocrit Date Value Ref Range Status 08/12/2023 43.4 36.0 - 46.0 % Final Platelet Count Date Value Ref Range Status 08/12/2023 298 150 - 400 k/uL Final MCV Date Value Ref Range Status 08/12/2023 102.8 (H) 80.0 - 100.0 fL Final Sodium Date Value Ref Range Status 08/12/2023 138 136 - 144 mmol/L Final Potassium Date Value Ref Range Status 08/12/2023 4.3 3.7 - 5.1 mmol/L Final Magnesium Date Value Ref Range Status 04/23/2017 2.2 1.7 - 2.6 mg/dL Final BUN Date Value Ref Range Status 08/12/2023 10 7 - 21 mg/dL Final Creatinine Date Value Ref Range Status 08/12/2023 0.70 0.58 - 0.96 mg/dL Final Calcium, Total Date Value Ref Range Status 08/12/2023 9.7 8.5 - 10.2 mg/dL Final CO2 Date Value Ref Range Status 08/12/2023 26 22 - 30 mmol/L Final Glucose Date Value Ref Range Status 08/12/2023 90 74 - 99 mg/dL Final Comment: The [place] Diabetes Association (ADA) provides guidance for cutoff values for fasting glucose and random glucose. The ADA defines fasting as no caloric intake for at least 8 hours. Fasting plasma glucose results between 100 to 125 mg/dL indicate increased risk for diabetes (prediabetes). Fasting plasma glucose results greater than or e (more content not included)... [facility] 04-23-2024 History of Presen t illness Narrative This is a regular in-office established patient visit. Chief Complaint: follow up Interval History: Patient accompanied by: none History given by: patient, records Last Visit Date: 08/01/22 39 year old year old female presents for [...] says jerks in sleep resolved Memory: fair Interim History: 08/01/22 - last visit Jan 2023 - two seizures within days of each other, attributes it to her leaving her and the stress 08/19/23 - elevated LFTs, stopped VPA, replaced with Onfi 10 mg Qhs and increased Keppra 1500 mg BID 08/29/23 - did not tolerate Onfi, stopped it and only increased Keppra to 1500 mg BID She denied any seizures between 08/2022 and 01/2023. She also denied any seizures between 01/2023 and now. Her last seizures were in Jan 2023. Seizures prior to Jan 2023 were >4 years prior. She reports compliance with medication but has changed the way she takes it. She is only taking LEV IR 1500 mg once daily in the morning and not BID as she is supposed to. She denied side effects but she is unable to remember to take the evening dose. Reviewed ROS and PFSH without any change [...] on File Prior to Visit Medication Sig meloxicam (MOBIC) 15 mg tablet Take 1 tablet by mouth once daily. Take with food. Levetiracetam 750 mg tablet Takes 2 tablets by mouth once daily every morning. No current facility-administered medications on file prior to visit. Results reviewed: WBC Date Value Ref Range Status 08/12/2023 6.06 3.70 - 11.00 k/uL Final RBC Date Value Ref Range Status 08/12/2023 4.22 3.90 - 5.20 m/uL Final Hemoglobin Date Value Ref Range Status 08/12/2023 14.9 11.5 - 15.5 g/dL Final Hematocrit Date Value Ref Range Status 08/12/2023 43.4 36.0 - 46.0 % Final Platelet Count Date Value Ref Range Status 08/12/2023 298 150 - 400 k/uL Final MCV Date Value Ref Range Status 08/12/2023 102.8 (H) 80.0 - 100.0 fL Final Sodium Date Value Ref Range Status 08/12/2023 138 136 - 144 mmol/L Final Potassium Date Value Ref Range Status 08/12/2023 4.3 3.7 - 5.1 mmol/L Final Magnesium Date Value Ref Range Status 04/23/2017 2.2 1.7 - 2.6 mg/dL Final BUN Date Value Ref Range Status 08/12/2023 10 7 - 21 mg/dL Final Creatinine Date Value Ref Range Status 08/12/2023 0.70 0.58 - 0.96 mg/dL Final Calcium, Total Date Value Ref Range Status 08/12/2023 9.7 8.5 - 10.2 mg/dL Final CO2 Date Value Ref Range Status 08/12/2023 26 22 - 30 mmol/L Final Glucose Date Value Ref Range Status 08/12/2023 90 74 - 99 mg/dL Final Comment: The [place] Diabetes Association (ADA) provides guidance for cutoff values for fasting glucose and random glucose. The ADA defines fasting as no caloric intake for at least 8 hours. Fasting plasma glucose results between 100 to 125 mg/dL indicate increased risk for diabetes (prediabetes). Fasting plasma glucose results greater than or equal to 126 mg/dL meet the criteria for diagnosis of diabetes. In the absence of unequivocal hyperglycemia, results should be confirmed by repeat testing. In a patient with classic symptoms of hyperglycemia or hyperglycemic crisis, random plasma glucose results greater than or equal to 200 mg/dL meet the criteria for diagnosis of diabetes. Reference: Standards of Medical Care in Diabetes 2016, [place] Diabetes Association. Diabetes Care. 2016.39(Suppl 1). ALT Date Value Ref Range Status 08/12/2023 63 (H) 7 - 38 U/L Final AST Date Value Ref Range Status 08/12/2023 92 (H) 13 - 35 U/L Final Alkaline Phosphatase Date Value Ref Range Status 08/12/2023 78 34 - 123 U/L Final MRI Report MRI BRAIN WO IVCON ([place]) Collected: 07/01/2017 2:29 PM (Final result) Narrative: * * *Final Report* * * DATE OF EXAM: Jul 01 2017 2:29PM Q 0294 - MRI BRAIN WO IVCON / PROCEDURE REASON: Epilepsy, unspecified, not intractable, without status epilepticus * * * * Physician Interpretation * * * * MRI BRAIN WO IVCON HISTORY: History of generalized anxiety disorder with agoraphobia and PTSD with recent diagnosis of idiopathic general epilepsy. TECHNIQUE: A series of pulse sequences were performed in multiple planes. T1 Weighted and T2 weighted, FLAIR, 3-D MPRAGE, diffusion imaging sequences were performed. The study included thin section imaging of the mesial temporal lobes and cortex in the coronal plane. COMPARISON: none FINDINGS: MR BRAIN: Acute Change: There is no evidence of an acute intracranial process. Hemorrhage: No evidence of prior parenchymal hemorrhage within the constraints of acquisition. Mass Effect / Mass Lesion: No evidence of an intracranial mass or extra-axial fluid collection. No significant mass effect. Chronic Change: No evidence of focal or regional encephalomalacia. No significant asymmetry in size, configuration or signal intensity characteristics of the mesial temporal structures. Parenchyma: No significant generalized parenchymal volume loss. The brain parenchyma is otherwise within normal limits of signal intensity and morphology. No distinct developmental abnormality is seen. Ventricles: Normal caliber and morphology. Skull Base: Hypothalamic and pituitary region are grossly normal. Craniocervical junction is normal. No significant marrow replacement process. Vasculature: A normal flow void is noted in the major dural venous sinuses suggesting patency by spin echo criteria. Other: Mild mucosal thickening in the maxillary and sphenoid sinuses. Impression: IMPRESSION: Normal study. Packing Machine Tender: PSCNori Transcribe Date/Time: Jul 01 2017 2:32P Dictated by : TAMIKO GLOVER MD This examination was interpreted and the report reviewed and electronically signed by: ANNEL DOAN MD on Jul 01 2017 3:20PM EST Physical Exam: Exam deferred. Assessment and Plan: 39 year old year old female presents for follow up on diagnosis of IGE. She had two seizures during Jan 2023 due to stress. She reports compliance but is taking Keppra IR 1500 mg once daily instead of recommended 1500 mg BID. She prefers to take it once daily because she is more forgetful of afternoon dose. No known side effects. 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 Driving History: Does not drive Recommendations: Change LEV IR 1500 mg once daily in the morning to LEV ER 1500 mg once daily in the morning Advised to call office if she has more seizures, then will add Onfi. Number provided. She had elevated LFTs secondary to VPA. Recheck CBC, CMP. Advised to obtain PCP to follow up on depression. If depression worsens, go to the ED. No need for folic acid since tubal ligation She understands that if she wants to drive or return to work, then we will need to assess seizure burden by doing an ambulatory EEG or inpatient evaluation before we can write any release for these activities. Check LEV level Friday morning at [facility]. She understands to hold off taking her morning dose and go get the lab checked at 7 am in the lab. Then she could take her dose in the lab. Return in 6 months. All questions and concerns were addressed. The patient was advised not to engage in any activity including driving where if she had a seizure her life or that of others would be in danger. She expressed understanding. Seizure management was reviewed. Risks of non-compliance and SUDEP were discussed. The side effects of the medications prescribed were reviewed. I spent approximately 15 minutes with the patient counseling and coordinating care. Neurology Nicole Lagunas MD documented in this encounter [facility] 12-08-2023 Note HNO ID: [id number] Author: MIKE MOORE, PT Service: ? Author Type: Physical Therapist Type: Progress Notes Filed: 12/08/2023 17:34 Note Text: 12/08/2023 [facility] PHYSICAL THERAPY DISCONTINUANCE OF CARE Plan of Care Period: Start of Care Date: 09/04/23 Last Visit Date: 09/09/2023 Therapy Program: The following is a summary of the interventions provided for this episode of care; Therapeutic exercise Assessment: Based on most recent visit, patient was progressing faster than expected toward functional goals based on home exercise program compliance, pain levels, documented subjective information on progress, and appointment compliance. Unable to formally assess goal achievement, as patient has not returned to therapy or scheduled additional follow-up appointments. Reason for Discontinuation of Care: Patient has not returned to therapy or scheduled additional follow-up appointments. Mike Moore PT [facility] 09-09-2023 Note HNO ID: [id number] Author: Mike Moore PT Service: ? Author [...] Stop Time : 1326 Mike Moore PT [facility] 09-09-2023 History of Presen t illness [...] Mike Moore PT documented in this encounter [facility] 09-04-2023 Note HNO ID: [id number] Author: Mike Moore PT Service: ? Author [...] of Care: created on 09/04/23 through 10/30/23 [place] in home exercise program. Perform stair negotiation, walking, and squatting without pain. Increased strength of LLE to 5/5 for return to PLOF Normal gait. Reciprocal stair negotiation. Patient Goals: Reduce the knee pain Planned Interventions, Frequency, and Duration: Current Frequency: 1x/week Duration: 4 weeks Total Number of Visits Planned: 4 Planned Treatment Interventions: Therapeutic exercise (05382), Neuromuscular re-education (86412), Manual therapy (48540), Self-correction management (49849), Patient/Family/Caregiver Education PLAN FOR NEXT VISIT: assess [...] of appropriate interventio (more content not included)... [facility] 09-04-2023 History of Presen t illness [...] of Care: created on 09/04/23 through 10/30/23 [place] in home exercise program. Perform stair negotiation, walking, and squatting without pain. Increased strength of LLE to 5/5 for return to PLOF Normal gait. Reciprocal stair negotiation. Patient Goals: Reduce the knee pain Planned Interventions, Frequency, and Duration: Current Frequency: 1x/week Duration: 4 weeks Total Number of Visits Planned: 4 Planned Treatment Interventions: Therapeutic exercise (13136), Neuromuscular re-education (19535), Manual therapy (12378), Self-correction management (51692), Patient/Family/Caregiver Education PLAN FOR NEXT VISIT: assess [...] Mike Moore PT documented in this encounter [facility] 08-29-2023 Miscellaneous Notes Spoke with patient, provided recommendations below. She verbalized agreement and thanked me for call. Requested info be sent in a [employer] message Reyna Denney RN Would advise her to increase Keppra to 1000/1500 for 1 week and then 1500/1500. She can stop Onfi tonight. The following approved medication requests have been transmitted electronically. Requested Prescriptions Signed Prescriptions Disp Refills levETIRAcetam (KEPPRA) 750 mg tablet 360 tablet 1 Sig: Take 2 tablets by mouth two times a day. Authorizing Provider: ANN FORD APRN.TELEVISION NEWS PHOTOGRAPHER Patient calling again for recommendations Reyna Denney RN Spoke with patient, she is not feeling good on Onfi and wants to come off and just remain on Keppra. She did not follow instructions given and went right off Depakote and has been taking Onfi 10mg hs. Please advise Reyna Denney RN Patient states she is returning call to nurse. Please call back [phone]. Medication Concern Person Calling Jory Bhatt Name of medication cloBAZam (ONFI) 10 mg tab tablet Concern with medication making her fill like a basket case. Does not feel good at all Patient of Dr. Lagunas documented in this encounter [facility] 08-22-2023 Note HNO ID: [id number] Author: Clayton Calderón V, DO Service: ? [...] PT steve and tx Clayton Calderón DO [facility] 08-22-2023 Note HNO ID: [id number] Author: Samantha Ayala RN Service: ? Author [...] Reposition, Relaxation, Cold, Splinting Samantha Ayala RN [facility] 08-22-2023 History of Presen t illness [...] Samantha Ayala RN documented in this encounter [facility] 08-19-2023 Miscellaneous Notes Addended by: ANN FORD [...] chose starting Onfi. Verified pharmacy as [facility]. She requests [employer] message with information discussed.( I will send) Reyna Denney RN Called patient, no answer Voicemail box full. Called and spoke with patients mother, asked her to have Jory call our office to discuss medication changes. She verbalized that she will give her the message. Will await call back Reyna Denney RN See recent message. Please contact pt to make sure she has stopped VPA and to see what option she would like 1. increase Keppra to 1500 mg BID 2. add Onfi once daily at bedtime. Ann Ford APRN.NATHEN documented in this encounter [facility] 08-12-2023 Miscellaneous Notes Patient given results and verbalized understanding of instructions given. Madie Reveles LPN Pt called in about medication again. Let her know the Flexeril and Mobic had gone through to [facility] in [place]. 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 She states provider talked about sending an rx for steroids and flexeril? Nothing mentioned in provider note about a steroid. Please advise and notify pt. Fortino Fuchs LPN documented in this encounter [facility] 08-12-2023 Note HNO ID: [id number] Author: Rob Bhagat APRN.TELEVISION NEWS PHOTOGRAPHER Service: ? Author Type: Nurse Practitioner Type: [...] - CONSULT TO ORTHOPAEDICS Rob Bhagat APRN.CNP [facility] 08-12-2023 Miscellaneous Notes Addended by: ROB BHAGAT on: 08/12/2023 03:53 PM Modules accepted: Orders documented in this encounter [facility] 08-12-2023 Note HNO ID: [id number] Author: Roz Vargas RT(R) Service: Radiology Author [...] RT Butch(R) August 12, 2023 1:49 PM [facility] 08-12-2023 History of Presen t illness [...] TABLET - CONSULT TO ORTHOPAEDICS Rob Bhagat APRN.NATHEN documented in this encounter [facility] 08-12-2023 History of Presen t illness Narrative Radiology Service Progress Note PATIENT NAME: Jory [...] RT Butch(R) August 12, 2023 1:49 PM documented in this encounter [facility] 08-12-2023 Miscellaneous Notes The following approved medication requests have been transmitted electronically. Requested Prescriptions Signed Prescriptions Disp Refills divalproex ER (DEPAKOTE ER) 500 mg 24 hr tablet 90 tablet 3 Sig: Take 1 tablet by mouth once daily. Authorizing Provider: ANN FORD levETIRAcetam (KEPPRA) 1,000 mg tablet 180 tablet 3 Sig: Take 1 tablet by mouth twice daily. Authorizing Provider: ANN FORD APRN.CNP Prescription Refill: Requested by: patient Please E-Scribe Caller Contact Number: [phone] Pharmacy Name: [phone] Pharmacy Number: [facility] Generic/ brand: Generic 30 or 90 day supply requested: 90 Last appointment: 08/01/22 Next Appointment: 08/14/[address] Lagunas documented in this encounter [facility] 08-12-2023 Miscellaneous Notes Labs order palced Ann Ford APRN.CNP Please place lab orders for annual visit. Thank you Reyna Denney RN ORDERS Person requesting order: Jory Viera Phone number: [phone] Order being requested: Labs Facility: [facility] Fax: Email: Patient of Dr. Lagunas documented in this encounter [facility] 07-07-2023 Note HNO ID: [id number] Author: Brett Sorto MD Service: ? Author [...] 2 % TOPICAL OINTMENT Brett Sorto MD [facility] 07-07-2023 History of Presen t illness [...] Brett Sorto MD documented in this encounter [facility] 06-04-2022 Miscellaneous Notes Lab orders placed Patient has upcoming appt, requesting labs. Routed to JOHN Berger RN ORDERS Person requesting order: Jory Bhatt Phone number: [phone] Order being requested: Labs Facility: [facility] Fax: Email: Patient of Dr. Lagunas documented in this encounter [facility] Evaluation note Diagnosis Generalized anxiety disorder- Primary Nonintractable generalized idiopathic epilepsy without status epilepticus (HCC) documented in this encounter [place] note* Diagnosis Fingernail injury, right, initial encounter- Primary documented in this encounter [place] note* Diagnosis Nonintractable generalized idiopathic epilepsy without status epilepticus (HCC)- Primary documented in this encounter [place] note* Diagnosis Knee injuries, left, initial encounter- Primary documented in this encounter [place] note* Diagnosis Nonintractable generalized idiopathic epilepsy without status epilepticus (HCC)- Primary documented in this encounter [place] note* Diagnosis Patellar dislocation, left, sequela- Primary Knee injuries, left, initial encounter documented in this encounter [place] note* Diagnosis Patellar dislocation, left, sequela documented in this encounter [place] note* Diagnosis Patellar dislocation, left, sequela- Primary documented in this encounter [place] note* Diagnosis Nonintractable generalized idiopathic epilepsy without status epilepticus (HCC)- Primary documented in this encounter [facility] for visit Narrative* Diagnostic Procedure Only (Urgent) - Closed Specialty Diagnoses / Procedures Referred By Toni staton Referred To Contact XR IMAGING Diagnoses Knee injuries, left, initial encounter Procedures XR KNEE GENERAL 4V AP BOTH/PA BOTH/LAT/MERC LEFT RADIOLOGIC EXAM KNEE COMPLETE 4/MORE VIEWS Rob Bhagat, JOHN.TELEVISION NEWS PHOTOGRAPHER [address] [place] [address] [place] [address] Referral ID Status Reason Start Date Expiration Date V isits Requested Visits Authorized [id number] Closed Auto-Generate d Referral 08/12/2023 09/10/2024 1 1 [facility] Summary Purpose Family History No Family History Records FoundNo Family History Records FoundNo Family History Records Found Advance Directives No Advanced Directives Records FoundNo Advanced Directives Records FoundNo Advanced Directives Records Found Reason for Referral Specialty Diagnoses / Procedures Referred By Toni t Referred To Contact Orthopedics Diagnoses Knee injuries, left, initial encounter Procedures CONSULT TO ORTHOPAEDICS OFFICE/OUTPATIENT NEW HIGH MDM 60-74 MINUTES Rob Bhagat, JOHN.TELEVISION NEWS PHOTOGRAPHER [address] [place] [address] Referral ID Status Reason Start Date Expiration Date Visits Requested Visits Authorized [id number] Pending Review PCP Requested Referral 08/12/2023 08/11/2024 1 1 Specialty Diagnoses / Procedures Referred By Contac t Referred To Contact XR IMAGING Diagnoses Knee injuries, left, initial encounter Procedures XR KNEE GENERAL 4V AP BOTH/PA BOTH/LAT/MERC LEFT RADIOLOGIC EXAM KNEE COMPLETE 4/MORE VIEWS Rob Bhagat APRN.TELEVISION NEWS PHOTOGRAPHER [address] [place] [address] [place] [address] Referral ID Status Reason Start Date Expiration Date V isits Requested Visits Authorized [id number] Closed Auto-Generate d Referral 08/12/2023 09/10/2024 1 1 Specialty Diagnoses / Procedures Referred By Contac t Referred To Contact [facility] Diagnoses Patellar dislocation, left, sequela Procedures CONSULT TO PHYSICAL THERAPY PHYSICAL THERAPY EVALUATION HIGH COMPLEX 45 MINS Clayton Calderón V, DO [address] [place] [address] [facility] [address] [place] [address] Referral ID Status Reason Start Date Expiration Date Visits Requested Visits Authorized [id number] Pending Review Auto-Generat ed Referral 08/22/2023 08/21/2024 1 1 Additional Source Comments INFORMATION SOURCE (unrecogn ized section and content) DATE CREATED AUTHOR 04/04/2021 [facility] DATE CREATED AUTHOR AUTHOR'S ORGANIZ ATION 04/25/2024 [facility] DATE CREATED AUTHOR AUTHOR'S ORGANIZ ATION 04/28/2024 [facility] Source Comments (unrecognize d section and content) In the event this informatio n is protected by the Federal Confidentiality of Alcohol and Drug Abuse Patient Records regulations: The Federal rules restrict any use of the information to criminally investigate or prosecute any alcohol or drug abuse patient.[facility] the event this information is protected by the Federal Confidentiality of Alcohol and Drug Abuse Patient Records regulations: The Federal rules restrict any use of the information to criminally investigate or prosecute any alcohol or drug abuse patient.[facility] the event this information is protected by the Federal Confidentiality of Alcohol and Drug Abuse Patient Records regulations: The Federal rules restrict any use of the information to criminally investigate or prosecute any alcohol or drug abuse patient.[facility] the event this information is protected by the Federal Confidentiality of Alcohol and Drug Abuse Patient Records regulations: The Federal rules restrict any use of the information to criminally investigate or prosecute any alcohol or drug abuse patient.[facility] the event this information is protected by the Federal Confidentiality of Alcohol and Drug Abuse Patient Records regulations: The Federal rules restrict any use of the information to criminally investigate or prosecute any alcohol or drug abuse patient.[facility] the event this information is protected by the Federal Confidentiality of Alcohol and Drug Abuse Patient Records regulations: The Federal rules restrict any use of the information to criminally investigate or prosecute any alcohol or drug abuse patient.[facility] the event this information is protected by the Federal Confidentiality of Alcohol and Drug Abuse Patient Records regulations: The Federal rules restrict any use of the information to criminally investigate or prosecute any alcohol or drug abuse patient.[facility] the event this information is protected by the Federal Confidentiality of Alcohol and Drug Abuse Patient Records regulations: The Federal rules restrict any use of the information to criminally investigate or prosecute any alcohol or drug abuse patient.[facility] the event this information is protected by the Federal Confidentiality of Alcohol and Drug Abuse Patient Records regulations: The Federal rules restrict any use of the information to criminally investigate or prosecute any alcohol or drug abuse patient.[facility] the event this information is protected by the Federal Confidentiality of Alcohol and Drug Abuse Patient Records regulations: The Federal rules restrict any use of the information to criminally investigate or prosecute any alcohol or drug abuse patient.[facility] the event this information is protected by the Federal Confidentiality of Alcohol and Drug Abuse Patient Records regulations: The Federal rules restrict any use of the information to criminally investigate or prosecute any alcohol or drug abuse patient.[facility] the event this information is protected by the Federal Confidentiality of Alcohol and Drug Abuse Patient Records regulations: The Federal rules restrict any use of the information to criminally investigate or prosecute any alcohol or drug abuse patient.[facility] the event this information is protected by the Federal Confidentiality of Alcohol and Drug Abuse Patient Records regulations: The Federal rules restrict any use of the information to criminally investigate or prosecute any alcohol or drug abuse patient.[facility] the event this information is protected by the Federal Confidentiality of Alcohol and Drug Abuse Patient Records regulations: The Federal rules restrict any use of the information to criminally investigate or prosecute any alcohol or drug abuse patient.[facility] Reason for Visit (unrecogniz ed section and content) Reason Comments Physical Therapy Specialty Diagnoses / Procedures Referred By Toni staton Referred To Contact [facility] Diagnoses Patellar dislocation, left, sequela Procedures CONSULT TO PHYSICAL THERAPY PHYSICAL THERAPY EVALUATION HIGH COMPLEX 45 MINS Clayton Calderón V, DO [address] [place] [address] [facility] [address] [place] [id number] Referral ID Status Reason Start Date Expiration Date Visits Requested Visits Authorized [id number] Authorized Auto-Generat ed Referral 12/01/2022 11/30/2023 20 [...] Specialty Diagnoses / Procedures Referred By Toni t Referred To Contact Orthopedics Diagnoses Knee injuries, left, initial encounter Procedures CONSULT TO ORTHOPAEDICS OFFICE/OUTPATIENT NEW [facility] MDM 60-74 MINUTES Rob Bhagat APRN.TELEVISION NEWS PHOTOGRAPHER [address] [place] [address] Referral ID Status Reason Start Date Expiration Date Visits Requested Visits Authorized [id number] Pending Review PCP Requested Referral 08/12/2023 08/11/2024 1 1 Reason Comments medication concern cloBAZam (ONFI) 10 m g tab tablet Reason Comments PT Eval Reason Comments Follow Up FOR RECORDS PERTAINING TO PATIENTS WHO ARE [...] BE BASED ON THE PRIMARY CLINICAL RECORDS. [facility] provides no warranty or guarantee of the accuracy or completeness of information in this document.
== END 2024-09-20 22:24 | disposition left against medical advice (07) ==
LOC: ED 22:30
PROVIDERS: PCP Internal Medicine
DX: Z53.21 Procedure and treatment not carried out due to patient leaving prior to being seen by health care provider (principal)

== ENCOUNTER 2025-01-17 13:58 | Emergency (ER) | payer MEDICARE, MEDICAID, SELFPAY ==
[2025-01-17 13:59] VITALS: BP 127/93; PULSE 99; RESP 16; TEMP 36.5; O2SAT 98; BMI 20.3
[2025-01-17 15:58] VITALS: PULSE 90; RESP 18; O2SAT 98
--- NOTE | 2025-01-17 16:16 | EX.ED.DYSGE1 ---
HPI History of Present Illness Chief Complaint: General Illness Narrative Narrative: Patient is a 39 year old female with a history of epilepsy, tobacco use and asthma presenting with 3 days of flu like symptoms. Patient states she started getting sick on Friday, 3 days ago. She notes that her boss and coworker both tested positive for flu A recently. On Friday she had 7 episodes of vomiting. She has not had any diarrhea. Last bowel movement was on Friday. She has been passing gas but thinks she has had decreased balance and she is unable to eat anything. She reports decreased oral intake. She is concerned she is dehydrated and think she just needs a liter of fluid. She feels that she has been lethargic and has been laying around with no energy. Has had subjective fever but is been too weak to get her thermometer and check her temperature. She has had a nonproductive cough. She feels that she has had intermittent wheeze. She denies any rash or skin changes. She is also concerned because she quit smoking 3 days ago and is worried this could affect her epilepsy. [facility] Medical History (Updated 01/17/25 @ 16:[address] Carmen Kendall, DO) Anxiety PTSD (post-traumatic stress disorder) Epilepsy Back problem Home Medications ?Medication ?Instructions ?Recorded ?Last Taken ?Type levetiracetam 750 mg tablet 1,000 mg PO DAILY 01/27/17 03/07/17 History divalproex 500 mg tablet,delayed 500 mg PO BID 09/11/18 Unknown History release (Depakote) sertraline 100 mg tablet (Zoloft) 100 mg PO DAILY 12/09/18 Unknown History nicotine 7 mg/24 hr daily 1 ea transdermal X1 ##20 04/15/19 Unknown Rx transdermal patch albuterol sulfate 90 mcg/actuation 2 puff inhalation Q4H PRN PRN 07/12/19 Unknown Rx aerosol inhaler Wheezing ##1 alprazolam 0.25 mg tablet (Xanax) 0.25 mg PO ONCE PRN anxiety #1 TAB 11/17/20 Unknown Rx ondansetron 4 mg disintegrating 4 mg PO Q8H PRN PRN Nausea #10 tabs 08/14/21 Unknown Rx tablet ondansetron 4 mg disintegrating 4 mg PO Q8H PRN PRN Nausea #10 tabs 12/02/23 Unknown Rx tablet ondansetron 4 mg disintegrating 4 mg PO Q8H PRN PRN Nausea #10 tabs 01/17/25 Unknown Rx tablet Allergy/AdvReac Type Severity Reaction Status Date / Time zonisamide (From [facility]) Allergy Hives Verified 12/02/23 18:52 naproxen AdvReac Upset Verified 12/02/23 18:52 Stomach Family History Father Myocardial infarction Mother Thyroid cancer Melanoma Hypertension Surgical History History of tubal ligation Social History household members: children housing: apartment Smoking Status: Current every day smoker tobacco type: cigarettes alcohol intake: current alcohol intake frequency: 0-2 drinks per day substance use type: marijuana what type of physical activity do you participate in: walking ROS ROS ED Constitutional Constitutional ED: Reports chills, fever(s), subjective and other Details: Fatigue, malaise ENT ENT ED: Reports rhinorrhea, sore throat and other Details: Congestion Cardiovascular Cardiovascular: Denies chest pain Respiratory/Chest Respiratory/Chest: Reports cough; Denies dyspnea Gastrointestinal Gastrointestinal: Reports nausea and vomiting; Denies abdominal pain or diarrhea Musculoskeletal Musculoskeletal: Reports myalgias; Denies arthralgias Integumentary Denies rash Neurologic Neurologic: Reports weakness EXAM Physical Exam Const Vital Signs: 01/17/25 13:59 01/17/25 15:40 01/17/25 15:58 Temperature 97.7 F L Temperature Source Temporal Pulse Rate 99 90 Respiratory Rate 16 18 Respiratory Effort Normal Non-Labored Respiratory Pattern Normal Blood Pressure 127/93 H Blood Pressure Mean 104 Pulse Ox 98 98 Oxygen Delivery Method Room Air Positive well nourished and well developed General Appearance ED: well developed and NAD HEENT Reports TM's clear and moist mucous membranes HEENT Narrative: Normal nares. Mild injection of the oropharynx present Tympanic Membrane ED: Yes TM's clear Eyes PERRL Neck no lymphadenopathy and supple Chest Wall inspection of chest normal and palpation of chest normal Resp normal respiratory effort and clear to auscultation bilaterally Auscultation: Negative for rhonchi or wheezes Cardio regular rate, regular rhythm and no murmurs GI normal to inspection, nondistended, normoactive bowel sounds and non-tender Extremity normal to inspection General Extremety ED: Negative for edema General Extremity: Negative for edema Neuro oriented x3 Sensorium / Orientation: alert Motor Exam: Negative for general weakness Psych mental status grossly normal Skin no rashes or lesions noted and no wounds MDM MDM MDM Narrative Medical decision making narrative: Patient valuated for 3 days of flulike symptoms. Has had positive contact for influenza. Clinically suspect she has the flu. Her vital signs are normal. She reports decreased oral intake and reports a lot of concern for dehydration. Because of that we will give a liter of IV fluid and a dose of Toradol. 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 Patient is comfortable this plan of care. She is offered Zofran but she declines it. Will be given a prescription for this. Discussed pushing fluids. 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 Is given return precautions. Discharged home in stable condition. Discharge Plan Triage Chief Complaint: General Illness ED Provider: Carmen Kendall Dx/Rx/DC Orders Clinical Impression: Flu-like symptoms Prescriptions: New ondansetron 4 mg tablet,disintegrating 4 mg PO Q8H PRN PRN (Reason: Nausea) Qty: 10 0RF No Action divalproex [Depakote] 500 mg tablet,delayed release (DR/EC) 500 mg PO BID sertraline [Zoloft] 100 mg tablet 100 mg PO DAILY levetiracetam 750 MG tablet 1,000 mg PO DAILY nicotine 1 EACH patch 24 hour 1 ea TD X1 Qty: 20 0RF albuterol sulfate 1 INHALER inhaler 2 puff inhalation Q4H PRN PRN (Reason: Wheezing) Qty: 1 0RF Rx Instructions: dispense with spacer ondansetron [ondansetron] 4 MG tablet 4 mg PO Q8H PRN PRN (Reason: Nausea) Qty: 10 0RF ondansetron [ondansetron] 4 mg tablet,disintegrating 4 mg PO Q8H PRN PRN (Reason: Nausea) Qty: 10 0RF alprazolam [Xanax] 0.25 mg tablet 0.25 mg PO ONCE PRN (Reason: anxiety) Qty: 1 0RF Rx Instructions: take 30 min prior to MRI, do not drive on this Stand Alone Forms: ED Work / School Excuse Primary Care Provider: Wayne Saul Referrals: Wayne Saul MD [Primary Care Provider] - Activity Restrictions/Additional Instructions: Clinically I suspect you have influenza A. You were given IV fluids because of your concern for dehydration. You are given a prescription for Zofran. Please continue to alternate ibuprofen and Tylenol for body aches and fever. Push fluids. Rest. Please return if you have a progression worsening your symptoms Print Language: Hebrew Disposition Disposition: Home, Self Care Discharge Date/Time: 01/17/25 17:30
[2025-01-17] MEDS: Ketorolac 15 MG/ML Vial IV (16:19)
[2025-01-17] MEDS: 0.9% Normal Saline (1000mL) 1,000 ML 999 ML IV (16:19)
== END 2025-01-17 17:30 | disposition home or self-care (01) ==
PROVIDERS: Emergency Provider Emergency Medicine; PCP Internal Medicine; Visit Provider Emergency Medicine
DX: R68.89 Other general symptoms and signs (principal); G40.909 Epilepsy, unspecified, not intractable, without status epilepticus; F17.210 Nicotine dependence, cigarettes, uncomplicated; Z20.828 Contact with and (suspected) exposure to other viral communicable diseases; J45.909 Unspecified asthma, uncomplicated
CPT/HCPCS: 96361; 96374; 99282; A4216

== ENCOUNTER 2025-10-17 17:49 | Emergency (ER) | payer MEDICAID, SELFPAY ==
[2025-10-17 17:50] VITALS: BP 125/98; PULSE 89; RESP 18; TEMP 36.6; O2SAT 99; BMI 19.3
--- NOTE | 2025-10-17 18:33 | EX.ED.DYSGE1 ---
HPI History of Present Illness Chief Complaint: Cold Sx Informant: patient Narrative Narrative: 40-year-old female presenting with 4 days of feeling ill. Patient states that on Friday she developed cough headache runny nose. She states that now she has had several episodes of vomiting and feels nauseated generalized malaise myalgias subjective fever. She denies any diarrhea or rash. She has a history of epilepsy is on Keppra. [facility] Medical History (Updated 10/17/25 @ 20:[address] Hussein Rivera DO) Anxiety PTSD (post-traumatic stress disorder) Epilepsy Back problem Home Medications Medication Instructions Recorded Last Taken Type levetiracetam 750 mg tablet 1,000 mg PO DAILY 01/27/17 03/07/17 History divalproex 500 mg tablet,delayed 500 mg PO BID 09/11/18 Unknown History release (Depakote) sertraline 100 mg tablet (Zoloft) 100 mg PO DAILY 12/09/18 Unknown History nicotine 7 mg/24 hr daily 1 ea transdermal X1 ##20 04/15/19 Unknown Rx transdermal patch albuterol sulfate 90 mcg/actuation 2 puff inhalation Q4H PRN PRN 07/12/19 Unknown Rx aerosol inhaler Wheezing ##1 alprazolam 0.25 mg tablet (Xanax) 0.25 mg PO ONCE PRN anxiety #1 TAB 11/17/20 Unknown Rx ondansetron 4 mg disintegrating 4 mg PO Q8H PRN PRN Nausea #10 tabs 08/14/21 Unknown Rx tablet ondansetron 4 mg disintegrating 4 mg PO Q8H PRN PRN Nausea #10 tabs 12/02/23 Unknown Rx tablet ondansetron 4 mg disintegrating 4 mg PO Q8H PRN PRN Nausea #10 tabs 01/17/25 Unknown Rx tablet Allergy/AdvReac Type Severity Reaction Status Date / Time zonisamide (From [facility]) Allergy Hives Verified 10/17/25 17:51 naproxen AdvReac Upset Verified 10/17/25 17:51 Stomach Family History Father Myocardial infarction Mother Thyroid cancer Melanoma Hypertension Surgical History History of tubal ligation Social History household members: children housing: apartment Smoking Status: Current every day smoker tobacco type: cigarettes alcohol intake: current alcohol intake frequency: 0-2 drinks per day substance use type: marijuana what type of physical activity do you participate in: walking ROS ROS ED Constitutional Constitutional ED: Reports chills, fever(s), subjective and weight loss Eyes Eyes: Denies change in vision or diplopia ENT ENT ED: Reports rhinorrhea; Denies ear pain or sore throat Cardiovascular Cardiovascular: Denies chest pain, orthopnea, palpitations or racing heartbeat Respiratory/Chest Respiratory/Chest: Reports cough; Denies dyspnea or orthopnea Gastrointestinal Gastrointestinal: Reports nausea and vomiting; Denies abdominal pain or diarrhea Genitourinary Genitourinary ED: Denies dysuria, hematuria or urinary frequency Musculoskeletal Musculoskeletal: Reports myalgias; Denies arthralgias Integumentary Denies abscess or rash Neurologic Neurologic: Denies headache(s) or weakness Psychiatric Psychiatric: Denies anxiety, depression, suicidal ideation or suicidal thoughts Endocrine Endocrinology: Denies polydipsia, polyphagia or polyuria Allergic/Immunologic Allergic/Immunologic ED: Denies mouth swelling, tongue swelling or urticaria EXAM Physical Exam Const Vital Signs: 10/17/25 17:50 Temperature 98 F Temperature Source Oral Pulse Rate 89 Respiratory Rate 18 Blood Pressure 125/98 H Blood Pressure Mean 107 Pulse Ox 99 Oxygen Delivery Method Room Air Positive well nourished and well developed General Appearance ED: well developed and NAD HEENT Reports normocephalic, head/scalp atraumatic and moist mucous membranes HEENT Narrative: Nasal congestion no significant oral pharyngeal erythema. Moist mucous membranes. Eyes PERRL and EOMs intact bilaterally Neck supple and no JVD Neck Narrative: Scattered anterior lymphadenopathy less than half centimeter mobile Resp normal respiratory effort and clear to auscultation bilaterally Resp Narrative: Moist cough otherwise lungs are clear Cardio regular rate, regular rhythm and no murmurs Rate: tachycardic and other Other Details: Heart rate 105 on my examination GI normal to inspection, nondistended, normoactive bowel sounds and non-tender Palpation: soft Back/Spine no CVA tenderness and normal ROM Extremity normal to inspection General Extremety ED: Negative for edema General Extremity: Negative for edema Neuro oriented x3 and CN's II-XII intact bilaterally Sensorium / Orientation: alert Motor Exam: strength 5/5 throughout Psych mental status grossly normal Mood & Affect: Negative for depressed or tearful Skin no rashes or lesions noted and no wounds MDM MDM MDM Narrative Medical decision making narrative: Differential diagnosis includes but not limited to pneumonia bronchitis bronchospasm pleural effusion viral syndrome dehydration acute kidney injury Patient's blood work is rather unremarkable. White count is 9.6 hemoglobin 15.1. CMP within normal limits glucose is 91 creatinine 0.67 with a BUN of 4. Parents to test is negative. My independent interpretation of the chest x-ray is no acute process. COVID influenza and RSV swab is positive for RSV. Patient received a liter of IV fluids as well as Toradol and Zofran. Patient will be discharged home with supportive care instructions for oral hydration Tylenol Motrin for fever and myalgias. She was given a work note to allow her to rest. History & Record Review Discussion w/independent historian: Patient Additional record(s) reviewed:: Prior ED visit and Prior labs Lab Data Attestation: I reviewed the patient's lab results. Labs: Laboratory Results - last 24 hr 10/17/25 18:45 WBC 9.6 RBC 4.40 Hgb 15.1 H Hct 43.5 MCV 98.9 MCH 34.3 H MCHC 34.7 RDW Std Deviation 42.7 RDW Coeff of Aliyah 11.7 Plt Count 295 MPV 9.0 Immature Gran % (Auto) 0.300 Neut % (Auto) 82.7 H Lymph % (Auto) 7.9 L [place] % (Auto) 5.7 Eos % (Auto) 2.8 Baso % (Auto) 0.6 Absolute Neuts (auto) 7.9 H Absolute Lymphs (auto) 0.75 L Nucleated RBC % 0 Sodium 137 Potassium 4.4 Chloride 97 L Carbon Dioxide 25.9 Anion Gap 14 BUN 4 Creatinine 0.67 L Estim Creat Clear Calc 86.59 Est GFR (MDRD) Non-Af 113 BUN/Creatinine Ratio 6.4 L Glucose 91 Calcium 9.6 Total Bilirubin 0.32 AST 24 ALT 9 Alkaline Phosphatase 76 Total Protein 7.7 Albumin 4.4 Globulin 3.3 Albumin/Globulin Ratio 1.4 Serum , Qual NEGATIVE Radiography Diagnostic Testing: Clinical Impression(s) from Imaging Studies Chest X-Ray 10/17/25 18:50 IMPRESSION: No acute pulmonary disease. Reading Location: [facility] Discharge Plan Triage Chief Complaint: Cold Sx ED Provider: Hussein Rivera Dx/Rx/DC Orders Clinical Impression: RSV infection Instructions: RSV (Respiratory Syncytial Virus) Prescriptions: No Action divalproex [Depakote] 500 mg tablet,delayed release (DR/EC) 500 mg PO BID sertraline [Zoloft] 100 mg tablet 100 mg PO DAILY levetiracetam 750 MG tablet 1,000 mg PO DAILY nicotine 1 EACH patch 24 hour 1 ea TD X1 Qty: 20 0RF albuterol sulfate 1 INHALER inhaler 2 puff inhalation Q4H PRN PRN (Reason: Wheezing) Qty: 1 0RF Rx Instructions: dispense with spacer ondansetron [ondansetron] 4 MG tablet 4 mg PO Q8H PRN PRN (Reason: Nausea) Qty: 10 0RF ondansetron [ondansetron] 4 mg tablet,disintegrating 4 mg PO Q8H PRN PRN (Reason: Nausea) Qty: 10 0RF ondansetron 4 mg tablet,disintegrating 4 mg PO Q8H PRN PRN (Reason: Nausea) Qty: 10 0RF alprazolam [Xanax] 0.25 mg tablet 0.25 mg PO ONCE PRN (Reason: anxiety) Qty: 1 0RF Rx Instructions: take 30 min prior to MRI, do not drive on this Primary Care Provider: Wayne Saul Referrals: Wayne Saul MD [Primary Care Provider, Internal Medicine] - As Needed Print Language: Tongan Disposition Disposition: Home, Self Care
[2025-10-17] MEDS: Ketorolac 30 MG/ML Syringe IV (18:43)
[2025-10-17] MEDS: 0.9% Normal Saline (1000mL) 1,000 ML 1000 ML IV (18:44)
--- NOTE | 2025-10-17 18:50 | RAD_ITS ---
PROCEDURE: CHEST PA AND LATERAL 10/17/2025 REASON FOR EXAM: COUGH TECHNIQUE: Procedure Code: RADCXR Modality: DX Procedure: CHEST PA AND LATERAL COMPARISON: 08/14/2021 FINDINGS: Lungs/Pleura: Clear. Heart/Mediastinum: Normal in size. Bones/Soft tissues: No significant abnormality. RAD/Chest PA and Lateral IMPRESSION: No acute pulmonary disease. Reading Location: [id number]
[2025-10-17 18:56] LABS: Hematocrit 43.5 % (37-47); Hemoglobin 15.1 g/dL (12.0-15.0); Immature Granulocytes Count 0.030 X10^3/uL (0.0-0.0); Mean Corp Hgb Conc 34.7 g/dL (32-36); Mean Corpuscular Volume 98.9 fL (81-99); Mean Platelet Vol. 9.0 fl (6.2-12.0); NRBC Flagged by Analyzer 0 % (0-5); Platelet Count 295 K/mm3 (150-450); RBC Distribution Width CV 11.7 % (11.6-14.6); RBC Distribution Width SD 42.7 fl (35.1-43.9); Red Blood Count 4.40 M/mm3 (4.2-5.4); White Blood Count 9.6 K/mm3 (4.4-11.0)
[2025-10-17 19:14] LABS: Internal QC Validated? YES +Cl - CLEAR BKGD; Pregnancy, Serum, hCG Quali. NEGATIVE Negative; Record Kit Lot#, Serum Preg. 980607
[2025-10-17 19:32] LABS: AST(SGOT) 24 U/L (<=31); Alanine Aminotransfer ALT/SGPT 9 U/L (<=34); Albumin, Serum 4.4 g/dL (3.5-5.0); Alkaline Phosphatase 76 U/L (35-104); Anion Gap 14 (5-15); BUN 4 mg/dL (4-19); BUN/Creat Ratio 6.4 RATIO (10-20); Calcium,Total 9.6 mg/dL (7.6-11.0); Carbon Dioxide 25.9 mmol/L (21.0-32.0); Chloride 97 mmol/L (98-108); Estimated Creatinine Clearance 86.59 ml/min (50-250); Globulin 3.3 g/dL (2.2-4.2); Glucose 91 mg/dL (70-99); Potassium 4.4 mmol/L (3.3-5.1)
[2025-10-17 20:33] VITALS: BP 128/70; PULSE 77; RESP 20; TEMP 36.8; O2SAT 99
== END 2025-10-17 20:35 | disposition home or self-care (01) ==
PROVIDERS: Emergency Provider Emergency Medicine; PCP Internal Medicine; Visit Provider Emergency Medicine
DX: J06.9 Acute upper respiratory infection, unspecified (principal); G40.909 Epilepsy, unspecified, not intractable, without status epilepticus; F17.210 Nicotine dependence, cigarettes, uncomplicated; Z79.899 Other long term (current) drug therapy; B97.4 Respiratory syncytial virus as the cause of diseases classified elsewhere
CPT/HCPCS: 71046; 80053; 84703; 85025; 87631; 96361; 96374; 96375; 99283; A4216; J2405